=== PATIENT | female | born 1930 | race Caucasian/White ===

== ENCOUNTER 2018-01-18 10:19 | Observation (INO) ==
--- NOTE | 2018-01-18 11:24 | Emergency Department Note ---
Disposition Clinical Impression: Compression fracture of body of thoracic vertebra Disposition: Admitted As Inpatient Condition: Fair Instructions: Back Pain (ED) Time of Disposition: 17:08 Back Pain HPI - General Chief Complaint: ED Back Pain/Injury Stated Complaint: Fall/Back Pain Time Seen by Provider: 01/18/18 11:06 Source: patient, family Mode of arrival: ambulatory Limitations: no limitations Nursing Notes Reviewed: Yes Vital Signs Reviewed: Yes - History of Present Illness HPI Narrative: 87yo female with past medical history of hypertension, hyperlipidemia presented to [facility] complaining of fall today. She is alongside her daughter who reports that the patient fell last week onto face and has bruising around eyes. She fell last night 3x unwitnessed and her daughter helped her up, then she fell again this morning and her daughters made her go to ED to be evaluated. She has had increased generalized body pain. Of note, she fell 8years ago in bath tub and was found to have a brain bleed. No treatment was done except watching, she was also told her had a few small aneurysms. She is not on anticoagulation. - Related Data Home Medications Medication Instructions Recorded Confirmed LORazepam [Ativan] 1 mg PO HS 09/29/16 09/29/16 Pravastatin Sodium [Pravachol] 40 mg PO DAILY 09/29/16 09/29/16 Allergies Allergy/AdvReac Type Severity Reaction Status Date / Time Sulfa (Sulfonamide Allergy Hives Verified 01/18/18 10:31 Antibiotics) All systems ED: reviewed and negative except as stated. Review of Systems: As Per HPI Constitutional: Denies: fever, chills Cardiovascular: Denies: chest pain Respiratory: Denies: cough, dyspnea Gastrointestinal: Reports: nausea. Denies: abdominal pain, melena Genitourinary: Denies: urgency Musculoskeletal: Reports: back pain Neurological: Denies: headache Endocrine: Denies: fatigue Past Medical History - Past Medical History Medical history: Reports: arthritis, cancer, hypertension Surgical history: Reports: , hip replacement, hysterectomy Psychiatric history: Reports: no psych history - Social History Smoking Status: Former smoker Smokeless Tobacco Status: No Alcohol use: Reports: none Drug use: Reports: none Physical Exam - General Limitations: no limitations General appearance: alert, in no apparent distress - Head Head exam: normocephalic - Eye Eye exam: Present: periorbital tenderness, other (ecchymosis b/l periorbital) - ENT ENT exam: normal exam - Neck Neck exam: Absent: tenderness - Chest Chest inspection: Present: normal inspection - Respiratory Respiratory exam: Present: normal lung sounds bilaterally. Absent: wheezes - Cardiovascular Cardiovascular exam: Present: regular rate, normal rhythm, systolic murmur - Abdominal Exam Abdominal exam: Present: soft, Non-Tender, normal bowel sounds - Extremities Exam Extremities exam: Absent: tenderness, pedal edema - Back Exam Back exam: Present: normal inspection - Neurological Exam Neurological exam: Present: alert, oriented X3 - Psychiatric Psychiatric exam: Present: normal affect, normal mood - Skin Skin exam: Present: dry, intact Course Course Narrative: 87yo female with past medical history of hypertension, hyperlipidemia presented to [facility] complaining of fall today. She has fallen last week one time and 3x yesterday. She has a history of brain hemorrhage that did not require intervention. She is not on anticoagulation. Differential includes subdural hemorrhage, subarachnoid hemorrhage, fracture. Will order CT scan brain, spine, facial bones. Order coags, CBC, BMB. - Reevaluation(s) Reevaluation #1: Acute compression fracture T12. Labs unremarkable. Patient is comfortable in no acute distress. Dr. Pierce aware of patient and will evaluate. Time: 12:30 Vital Signs Temperature 97.7 F 01/18/18 10:20 Pulse Rate 109 01/18/18 10:20 Respiratory Rate 18 01/18/18 10:20 Blood Pressure 179/104 01/18/18 10:20 O2 Sat by Pulse Oximetry 96 01/18/18 10:20 Temperature 97.7 F 01/18/18 10:20 Pulse Rate 82 01/18/18 14:13 Respiratory Rate 18 01/18/18 15:02 Blood Pressure 168/99 01/18/18 15:02 O2 Sat by Pulse Oximetry 95 01/18/18 14:13 Oxygen Delivery Oxygen Delivery Room Air Back Pain/Injury - MDM Narrative Medical decision making narrative: 87yo female with past medical history of hypertension, hyperlipidemia presented to [facility] complaining of fall today. She has fallen last week one time and 3x yesterday. She has a history of brain hemorrhage that did not require intervention. She is not on anticoagulation. Differential included subdural hemorrhage, subarachnoid hemorrhage, fracture. CT head, facial, cervical were negative. CT thoracic and lumbar demonstrated acute compression fracture. Dr. Davila of orthopedic surgery was consulted and will evaluate patient on the floor for the acute compression fracture. - Medical Records Medical records reviewed: Yes I reviewed the patient's medical records. - Lab Data Lab results reviewed: Yes I reviewed the patient's lab results. Result diagrams: 01/18/18 12:08 01/18/18 12:08 Lab Results 01/18/18 01/18/18 01/18/18 Range/Units 12:08 12:08 12:08 WBC 10.5 (4.3-11.1) K/mcL RBC 4.95 (3.82-4.97) M/mcL Hgb 14.4 (11.5-15.4) g/dL Hct 43.0 (35.3-44.9) % MCV 86.9 (83.0-100.0) fL MCH 29.1 (28.0-33.3) pg MCHC 33.5 (31.6-35.5) g/dL RDW 14.5 (11.5-14.5) % Plt Count 192 (140-400) K/mcL MPV 9.9 (9.4-12.4) fL Immature Gran % 0.8 (0-4) % Seg Neutrophils % 74.8 % Lymphocytes % 13.4 % Monocytes % 10.0 % Eosinophils % 0.6 % Basophils % 0.4 % Neutrophils # 7.8 (1.6-8.9) K/mcL Lymphocytes # 1.4 (0.6-4.6) K/mcL Monocytes # 1.1 (0.0-1.3) K/mcL Eosinophils # 0.1 (0.0-0.6) K/mcL Basophils # 0.0 (0.0-0.2) K/mcL PT 11.6 (9.4-12.1) Seconds INR 1.1 APTT 29.6 (26.0-36.0) Seconds Sodium (136-145) mEq/L Potassium (3.5-5.1) mEq/L Chloride (98-107) mEq/L Carbon Dioxide (23-29) mEq/L BUN (8-23) mg/dL Creatinine (0.60-1.20) mg/dL Est GFR ( Amer) (> 60) Est GFR (Non-Af Amer) (> 60) BUN/Creatinine Ratio (6-26) Glucose (70-105) mg/dL Calculated Osmolality (280-300) Calcium (8.6-10.3) mg/dL Troponin I (< 0.04) ng/mL B-Natriuretic Peptide 113 H (Less than 100) pg/mL 01/18/18 Range/Units 12:08 WBC (4.3-11.1) K/mcL RBC (3.82-4.97) M/mcL Hgb (11.5-15.4) g/dL Hct (35.3-44.9) % MCV (83.0-100.0) fL MCH (28.0-33.3) pg MCHC (31.6-35.5) g/dL RDW (11.5-14.5) % Plt Count (140-400) K/mcL MPV (9.4-12.4) fL Immature Gran % (0-4) % Seg Neutrophils % % Lymphocytes % % Monocytes % % Eosinophils % % Basophils % % Neutrophils # (1.6-8.9) K/mcL Lymphocytes # (0.6-4.6) K/mcL Monocytes # (0.0-1.3) K/mcL Eosinophils # (0.0-0.6) K/mcL Basophils # (0.0-0.2) K/mcL PT (9.4-12.1) Seconds INR APTT (26.0-36.0) Seconds Sodium 138 (136-145) mEq/L Potassium 3.7 (3.5-5.1) mEq/L Chloride 106 (98-107) mEq/L Carbon Dioxide 23 (23-29) mEq/L BUN 21 (8-23) mg/dL Creatinine 0.74 (0.60-1.20) mg/dL Est GFR ( Amer) > 60 (> 60) Est GFR (Non-Af Amer) > 60 (> 60) BUN/Creatinine Ratio 28 H (6-26) Glucose 112 H (70-105) mg/dL Calculated Osmolality 290 (280-300) Calcium 9.0 (8.6-10.3) mg/dL Troponin I < 0.03 (< 0.04) ng/mL B-Natriuretic Peptide (Less than 100) pg/mL - Radiology Data Radiology results reviewed: Yes I reviewed the patient's radiology results. Cervical Spine CT 01/18/18 10:57 IMPRESSION: 1. No evidence of cervical spine fracture or listhesis. D/ / 01/18/2018 12:05:46 Delfino Torrez MD / marcos Interpreting Provider: Delfino Torrez MD Face CT 01/18/18 10:57 IMPRESSION: 1. No acute osseous abnormality of the facial bones. 2. Small laceration within the soft tissues of the right face. 3. Indeterminate 1.6 cm nodule within the soft tissues of the right face. This may be a complex cyst, although, a solid nodule cannot be excluded. Consider further evaluation with soft tissue ultrasound. D/ / Quinton Velez MD / Quinton Velez MD Interpreting Provider: Quinton Velez MD Head CT 01/18/18 10:57 IMPRESSION: 1. No acute intracranial abnormality. 2. Mild chronic small vessel ischemic changes. D/ / Quinton Velez MD / Quinton Velez MD Interpreting Provider: Quinton Velez MD Chest X-Ray 01/18/18 10:58 IMPRESSION: No acute traumatic abnormality. Mild left lower lobe subsegmental atelectasis. D/ : / 01/18/2018 11:59:04 Ceasar Garvin MD / [email or web address] Interpreting Provider: Ceasar Garvin MD Lumbar Spine CT 01/18/18 11:30 IMPRESSION: 1. Acute mild superior endplate compression fracture of T12 with 25% vertebral body height loss. 2. Age-indeterminate, likely chronic mild T5 compression fracture with 25% vertebral body height loss. 3. Remote mild L2 compression fracture. No acute abnormality in the lumbar spine. D/ / 01/18/2018 12:33:09 Benito Sosa MD / eryn Interpreting Provider: Benito Sosa MD Thoracic Spine CT 01/18/18 11:30
[2018-01-18 12:26] LABS: Basophils % 0.4 %; Eosinophils # 0.1 K/mcL (0.0-0.6); Eosinophils % 0.6 %; Hemoglobin 14.4 g/dL (11.5-15.4); Immature Granulocytes % 0.8 % (0-4); Lymphocytes # 1.4 K/mcL (0.6-4.6); Lymphocytes % 13.4 %; Mean Corpuscular HGB Conc 33.5 g/dL (31.6-35.5); Mean Corpuscular Hemoglobin 29.1 pg (28.0-33.3); Mean Corpuscular Volume 86.9 fL (83.0-100.0); Mean Platelet Volume 9.9 fL (9.4-12.4); Monocytes # 1.1 K/mcL (0.0-1.3); Neutrophils # 7.8 K/mcL (1.6-8.9); Platelet Count 192 K/mcL (140-400); Red Blood Count 4.95 M/mcL (3.82-4.97); Red Cell Distribution Width 14.5 % (11.5-14.5); Segmented Neutrophils % 74.8 %
[2018-01-18 12:33] LABS: INR 1.1; Prothrombin Time 11.6 Seconds (9.4-12.1)
[2018-01-18 12:35] LABS: Activated Partial Thrombo Time 29.6 Seconds (26.0-36.0)
[2018-01-18] MEDS ORDERED: *HR* FentaNYL (PF) 100 MCG/2 ML VIAL IVP ONE (12:36)
[2018-01-18 12:44] LABS: Troponin I < 0.03 ng/mL (< 0.04)
[2018-01-18 12:55] LABS: BUN/Creatinine Ratio 28 (6-26); Blood Urea Nitrogen 21 mg/dL (8-23); Carbon Dioxide 23 mEq/L (23-29); Chloride 106 mEq/L (98-107); Glucose 112 mg/dL (70-105); Osmolality,Calculated 290 (280-300); Potassium 3.7 mEq/L (3.5-5.1); Sodium 138 mEq/L (136-145); eGFR For African Americans > 60 (> 60); eGFR For Non-African Americans > 60 (> 60)
--- NOTE | 2018-01-18 13:23 | Emergency Department Note ---
Disposition Clinical Impression: Compression fracture of body of thoracic vertebra Disposition: Still a Patient Condition: Fair Referrals: Andrey Trujillo Jr, MD [Primary Care Provider] - Forms: ED Satisfaction Letter Back Pain HPI - General Chief Complaint: ED Back Pain/Injury Stated Complaint: Fall/Back Pain Time Seen by Provider: 01/18/18 11:06 Source: patient, family Mode of arrival: ambulatory Limitations: no limitations Nursing Notes Reviewed: Yes Vital Signs Reviewed: Yes - Related Data Home Medications Medication Instructions Recorded Confirmed LORazepam [Ativan] 1 mg PO HS 09/29/16 09/29/16 Multivit-Min/FA/Lycopen/Lutein 1 tab PO DAILY 09/29/16 09/29/16 [Centrum Silver Tablet] Pravastatin Sodium [Pravachol] 40 mg PO DAILY 09/29/16 09/29/16 Allergies Allergy/AdvReac Type Severity Reaction Status Date / Time Sulfa (Sulfonamide Allergy Hives Verified 01/18/18 10:31 Antibiotics) Past Medical History - Past Medical History Medical history: Reports: arthritis, cancer, hypertension Surgical history: Reports: , hip replacement, hysterectomy Psychiatric history: Reports: no psych history - Social History Smoking Status: Former smoker Smokeless Tobacco Status: No Alcohol use: Reports: none Drug use: Reports: none Physical Exam - General Limitations: no limitations General appearance: alert, in no apparent distress Course Vital Signs Temperature 97.7 F 01/18/18 10:20 Pulse Rate 109 01/18/18 10:20 Respiratory Rate 18 01/18/18 10:20 Blood Pressure 179/104 01/18/18 10:20 O2 Sat by Pulse Oximetry 96 01/18/18 10:20 Temperature 97.7 F 01/18/18 10:20 Pulse Rate 94 01/18/18 12:23 Respiratory Rate 18 01/18/18 12:23 Blood Pressure 155/85 01/18/18 12:23 O2 Sat by Pulse Oximetry 96 01/18/18 12:23 Oxygen Delivery Oxygen Delivery Room Air Back Pain/Injury - Lab Data Result diagrams: 01/18/18 12:08 01/18/18 12:08 Lab Results 01/18/18 01/18/18 01/18/18 Range/Units 12:08 12:08 12:08 WBC 10.5 (4.3-11.1) K/mcL RBC 4.95 (3.82-4.97) M/mcL Hgb 14.4 (11.5-15.4) g/dL Hct 43.0 (35.3-44.9) % MCV 86.9 (83.0-100.0) fL MCH 29.1 (28.0-33.3) pg MCHC 33.5 (31.6-35.5) g/dL RDW 14.5 (11.5-14.5) % Plt Count 192 (140-400) K/mcL MPV 9.9 (9.4-12.4) fL Immature Gran % 0.8 (0-4) % Seg Neutrophils % 74.8 % Lymphocytes % 13.4 % Monocytes % 10.0 % Eosinophils % 0.6 % Basophils % 0.4 % Neutrophils # 7.8 (1.6-8.9) K/mcL Lymphocytes # 1.4 (0.6-4.6) K/mcL Monocytes # 1.1 (0.0-1.3) K/mcL Eosinophils # 0.1 (0.0-0.6) K/mcL Basophils # 0.0 (0.0-0.2) K/mcL PT 11.6 (9.4-12.1) Seconds INR 1.1 APTT 29.6 (26.0-36.0) Seconds Sodium (136-145) mEq/L Potassium (3.5-5.1) mEq/L Chloride (98-107) mEq/L Carbon Dioxide (23-29) mEq/L BUN (8-23) mg/dL Creatinine (0.60-1.20) mg/dL Est GFR ( Amer) (> 60) Est GFR (Non-Af Amer) (> 60) BUN/Creatinine Ratio (6-26) Glucose (70-105) mg/dL Calculated Osmolality (280-300) Calcium (8.6-10.3) mg/dL Troponin I (< 0.04) ng/mL B-Natriuretic Peptide 113 H (Less than 100) pg/mL 01/18/18 Range/Units 12:08 WBC (4.3-11.1) K/mcL RBC (3.82-4.97) M/mcL Hgb (11.5-15.4) g/dL Hct (35.3-44.9) % MCV (83.0-100.0) fL MCH (28.0-33.3) pg MCHC (31.6-35.5) g/dL RDW (11.5-14.5) % Plt Count (140-400) K/mcL MPV (9.4-12.4) fL Immature Gran % (0-4) % Seg Neutrophils % % Lymphocytes % % Monocytes % % Eosinophils % % Basophils % % Neutrophils # (1.6-8.9) K/mcL Lymphocytes # (0.6-4.6) K/mcL Monocytes # (0.0-1.3) K/mcL Eosinophils # (0.0-0.6) K/mcL Basophils # (0.0-0.2) K/mcL PT (9.4-12.1) Seconds INR APTT (26.0-36.0) Seconds Sodium 138 (136-145) mEq/L Potassium 3.7 (3.5-5.1) mEq/L Chloride 106 (98-107) mEq/L Carbon Dioxide 23 (23-29) mEq/L BUN 21 (8-23) mg/dL Creatinine 0.74 (0.60-1.20) mg/dL Est GFR ( Amer) > 60 (> 60) Est GFR (Non-Af Amer) > 60 (> 60) BUN/Creatinine Ratio 28 H (6-26) Glucose 112 H (70-105) mg/dL Calculated Osmolality 290 (280-300) Calcium 9.0 (8.6-10.3) mg/dL Troponin I < 0.03 (< 0.04) ng/mL B-Natriuretic Peptide (Less than 100) pg/mL Attestation Statement - Attestation Attestation: I, Blake Keita, examined this patient and my medical decision-making was reviewed with the HOIST OPERATOR/PA/Advanced Practice Nurse/Resident Physician. I agree with the documented findings, disposition and treatment plan as described except to the extent set forth below. 87-year-old female presents emergency Department with concerns of back pain and multiple falls. Family states patient lives alone and has had multiple falls over the past week. They state that this is not uncommon for her. She also has a history of progressing dementia and has loss of short-term memory. Patient denies fever, chills, chest pain, shortness of breath. She had multiple falls over the past couple days. She had a CT today which showed acute compression fracture of for taper body of T12 with 25% height loss. Patient also has evidence of multiple previous compression fractures. No intracranial hemorrhage or cervical spine fracture. Patient is ambulating well with her walker prior to arrival however she is unsafe to be home alone. Family feels that is important for her to be able to have more supervision at home. They are unable to provide this. They are requesting placement to a rehabilitation facility versus an assisted living facility. Patient comfortable with this plan of action. I spoke with Dr. Davila regarding the patient's care and presentation and he will consult if patient is admitted to the hospital for vertebral plasty. If patient is discharged he will see the patient in on Thursday, 01/20 at 9 AM. outside maintenance worker was contacted regarding placement versus admission. Disposition is pending at this time.
--- NOTE | 2018-01-18 14:16 | Internal Med History&Physical ---
Date of Encounter: 01/18/18 Time of Encounter: 14:12 Internal Medicine - H&P: HPI Chief complaint: recurrent falls Admitted From: Emergency Dept Plans for Post Hospital Care: Home History of present illness: Ms. Rhodes is a 87 year old female Patient with history of progressive dementia, hypertension, high cholesterol, arthritis, history of cerebral bleed in the past no surgical intervention . Patient was brought in by daughter due to patient has recurrent falls . daughter is concern patient is getting much more forgetful and had a fall about a week ago and also fell 3 times last night therefore brought into the emergency room by the daughter she had multiple x-rays and CT scan of neck, head CT spine lumbar spine and thoracic spine noted to have T12 compression fraction Dr. Davila was consulted for follow-up evaluation for possible kyphoplasty patient been admitted and might need placement patient is awake alert complians of back pain and some generalized weakness Past Med Surg Social Fam HX - Past Medical History Medical history: arthritis, cancer, hypertension Additional medical history: Brain aneurysm Psychiatric history: no psych history - Past Surgical History Surgical History: , hip replacement, hysterectomy - Social History Smoking Status: Former smoker Smokeless Tobacco Status: No Alcohol use: none Drug use: none Internal Medicine - H&P: Meds LORazepam [Ativan] 1 mg PO HS 09/29/16 [History] Multivit-Min/FA/Lycopen/Lutein [Centrum Silver Tablet] 1 tab PO DAILY 09/29/16 [ History] Pravastatin Sodium [Pravachol] 40 mg PO DAILY 09/29/16 [History] 3 Allergy/AdvReac Type Severity Reaction Status Date / Time Sulfa (Sulfonamide Allergy Hives Verified 01/18/18 10:31 Antibiotics) All Systems PM: A 10-system review of systems was performed and is negative for pertinent findings except as documented above in the HPI. - Constitutional Vitals: Temp Pulse Resp BP Pulse Ox 97.7 F 94 18 155/85 96 01/18/18 10:20 01/18/18 12:23 01/18/18 12:23 01/18/18 12:23 01/18/18 12:23 - Eye Eye exam: Present: PERRL, conjuntiva pink, sclera anicteric Pupils: Present: PERRL - Neck Neck exam general surgery: Present: supple, trachea midline. Absent: lymphadenopathy - Cardiovascular Cardiovascular exam: Present: RRR, +S1, +S2. Absent: diastolic murmur, gallop, rubs, systolic murmur - GI/Abdominal GI/Abdominal exam: Present: normal bowel sounds, soft, no peritoneal signs. Absent: distended, tenderness - Extremities Exam Extremities exam: Present: tenderness - Neurological Exam Neurological exam: Present: CN II-XII intact, oriented X3, no focal deficits. Absent: pronater drift, facial droop, speech deficit Internal Med - H&P Results - Labs CBC & Chem 7: 01/18/18 12:08 01/18/18 12:08 Labs: Short CBC 01/18/18 Range/Units 12:08 WBC 10.5 (4.3-11.1) K/mcL Hgb 14.4 (11.5-15.4) g/dL Hct 43.0 (35.3-44.9) % Plt Count 192 (140-400) K/mcL Neutrophils # 7.8 (1.6-8.9) K/mcL BMP 01/18/18 12:08 Sodium 138 Potassium 3.7 Chloride 106 Carbon Dioxide 23 BUN 21 Creatinine 0.74 Glucose 112 H Calcium 9.0 Cardiac Enzymes 01/18/18 Range/Units 12:08 Troponin I < 0.03 (< 0.04) ng/mL - Impressions ITS Impressions Cervical Spine CT 01/18/18 10:57 IMPRESSION: 1. No evidence of cervical spine fracture or listhesis. D/ / 01/18/2018 12:05:46 Delfino Torrez MD / marcos Interpreting Provider: Delfino Torrez MD Face CT 01/18/18 10:57 IMPRESSION: 1. No acute osseous abnormality of the facial bones. 2. Small laceration within the soft tissues of the right face. 3. Indeterminate 1.6 cm nodule within the soft tissues of the right face. This may be a complex cyst, although, a solid nodule cannot be excluded. Consider further evaluation with soft tissue ultrasound. D/ / Quinton Velez MD / Quinton Velez MD Interpreting Provider: Quinton Velez MD Head CT 01/18/18 10:57 IMPRESSION: 1. No acute intracranial abnormality. 2. Mild chronic small vessel ischemic changes. D/ / Quinton Velez MD / Quinton Velez MD Interpreting Provider: Quinton Velez MD Chest X-Ray 01/18/18 10:58 IMPRESSION: No acute traumatic abnormality. Mild left lower lobe subsegmental atelectasis. D/ / 01/18/2018 11:59:04 Ceasar Garvin MD / avinash Interpreting Provider: Ceasar Garvin MD Lumbar Spine CT 01/18/18 11:30 IMPRESSION: 1. Acute mild superior endplate compression fracture of T12 with 25% vertebral body height loss. 2. Age-indeterminate, likely chronic mild T5 compression fracture with 25% vertebral body height loss. 3. Remote mild L2 compression fracture. No acute abnormality in the lumbar spine. D/ / 01/18/2018 12:33:09 Benito Sosa MD / eryn Interpreting Provider: Benito Sosa MD Thoracic Spine CT 01/18/18 11:30 IMPRESSION: 1. Acute mild superior endplate compression fracture of T12 with 25% vertebral body height loss. 2. Age-indeterminate, likely chronic mild T5 compression fracture with 25% vertebral body height loss. 3. Remote mild L2 compression fracture. No acute abnormality in the lumbar spine. D/ / 01/18/2018 12:33:09 Benito Sosa MD / eryn Interpreting Provider: Benito Sosa MD - Assessment and plan (1) Recurrent falls Current Visit: Yes Status: Acute Assessment and plan: Recurrent mechanical falls we will consult social for possible placement (2) Dementia Current Visit: Yes Status: Chronic Assessment and plan: chronic Qualifiers: Dementia type: unspecified type Dementia behavioral disturbance: without behavioral disturbance Qualified Code(s): F03.90 - Unspecified dementia without behavioral disturbance (3) HTN (hypertension) Current Visit: Yes Status: Chronic Assessment and plan: Chronic not well controlled we will resume home medication and make some adjustment Qualifiers: Hypertension type: essential hypertension Qualified Code(s): I10 - Essential (primary) hypertension (4) Hyperlipidemia Current Visit: Yes Status: Chronic Assessment and plan: Chronic resume home medication Qualifiers: Hyperlipidemia type: pure hypercholesterolemia Qualified Code(s): E78.00 - Pure hypercholesterolemia, unspecified; E78.0 - Pure hypercholesterolemia (5) DJD (degenerative joint disease) Current Visit: Yes Status: Chronic Qualifiers: Osteoarthritis location: spine Spinal region: thoracic 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 Davila has been consulted - Time Spent With Patient Total time spent is greater than 50% in coordination of care (as documented) at patient's floor/unit and/or counseling patient:
[2018-01-18] MEDS ORDERED: Naloxone 0.4 MG/ML INJ IVP PRN (14:26)
[2018-01-18] MEDS: 0.9 % Sodium Chloride 1,000 ML IVC SCH (16:03)
[2018-01-18] MEDS: Ondansetron 4 MG/2 ML VIAL IVP PRN ×2 (16:06→23:41)
[2018-01-18] MEDS: traMADol 50 MG TABLET PO PRN ×2 (17:21→21:34)
--- NOTE | 2018-01-18 20:59 | Electrocardiograph Report ---
[facility] Test Date: 2018-01-18 Pat Name: Jennifer Rhodes Department: 102 Room: 3B45 Gender: F Director Of Public Safety: : 1930 Requested By: Violeta Keita Order Number: [id number] Reading MD: Rohan Vizcarra Measurements Intervals [place] Rate: 104 P: 39 SC: 103 QRS: -19 QRSD: 89 T: 6 QT: 339 QTc: 399 Interpretive Statements SINUS TACHYCARDIA LEFT VENTRICULAR HYPERTROPHY AND ST-T CHANGE Electronically Signed On 01-18-2018 20:58:07 EDT by Rohan Vizcarra
[2018-01-18] MEDS ORDERED: *HR* LORazepam 1 MG TABLET PO SCH (21:00)
[2018-01-18] MEDS: Acetaminophen 325 MG TABLET PO PRN (23:40)
[2018-01-19 05:40] LABS: Hematocrit 42.7 % (35.3-44.9); Hemoglobin 14.1 g/dL (11.5-15.4); Mean Corpuscular Hemoglobin 29.2 pg (28.0-33.3); Mean Corpuscular Volume 88.4 fL (83.0-100.0); Mean Platelet Volume 10.1 fL (9.4-12.4); Platelet Count 182 K/mcL (140-400); Red Blood Count 4.83 M/mcL (3.82-4.97); Red Cell Distribution Width 14.6 % (11.5-14.5)
[2018-01-19] MEDS: 0.9 % Sodium Chloride 1,000 ML IVC SCH (05:46)
[2018-01-19 05:59] LABS: Alanine Aminotransferase 19 Units/L (7-52); Albumin 3.4 g/dL (3.5-5.7); Albumin/Globulin Ratio 1.4 (1.1-2.2); Alkaline Phosphatase 61 Units/L (34-104); Aspartate Amino Transferase 22 Units/L (13-39); BUN/Creatinine Ratio 27 (6-26); Bilirubin,Total 0.7 mg/dL (0.3-1.0); Blood Urea Nitrogen 15 mg/dL (8-23); Calcium 8.6 mg/dL (8.6-10.3); Carbon Dioxide 20 mEq/L (23-29); Chloride 106 mEq/L (98-107); Chol/HDL Ratio 2.9 (0-4.9); Cholesterol 106 mg/dL (< 200); Globulin 2.5 g/dL (2.4-3.5); Glucose 105 mg/dL (70-105); HDL Cholesterol 37 mg/dL (40-59); LDL Cholesterol,Calculated 52 mg/dL (0-99); Magnesium 1.8 mg/dL (1.6-2.6); Osmolality,Calculated 285 (280-300); Potassium 3.7 mEq/L (3.5-5.1); Sodium 137 mEq/L (136-145); Total Protein 5.9 g/dL (6.4-8.9); Triglycerides 83 mg/dL (< 150); eGFR For African Americans > 60 (> 60); eGFR For Non-African Americans > 60 (> 60)
[2018-01-19] MEDS ORDERED: *HR* Enoxaparin 40 MG/0.4 ML SYRINGE SQ SCH (06:00)
[2018-01-19] MEDS: traMADol 50 MG TABLET PO PRN ×2 (13:37→22:07)
--- NOTE | 2018-01-19 14:17 | Internal Med Progress Note ---
Date of Encounter: 01/19/18 Time of Encounter: 14:15 - Assessment and plan (1) Compression fracture of body of thoracic vertebra Current Visit: Yes Status: Acute Assessment and plan: Acute T12 compression fracture 2/2 recurrent falls Patient continued complaining of lower back pain Dr. Davila has been consult and-awaiting further recommendations Continue pain management per current regimen PT/OT/social research assistant and nurse navigator consult Consider inpatient rehabilitation at discharge (2) Recurrent falls Current Visit: Yes Status: Acute Assessment and plan: Patient presents with recurrent falls Falls resulting in acute T12 compression fracture Patient may benefit from placement for rehabilitation Consult PT/OT/social research assistant and nurse navigator The patient does not wish for inpatient rehabilitation she may benefit from home health with physical therapy (3) DJD (degenerative joint disease) Current Visit: Yes Status: Chronic Qualifiers: Osteoarthritis location: spine Spinal region: thoracic Spinal osteoarthritis complication: unspecified spinal osteoarthritis Qualified Code( s): 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 Continue to monitor. Adding 5 mg IV metoprolol when necessary for SBP greater than 170 hold for HR less than 60 Qualifiers: Hypertension type: essential hypertension Qualified Code(s): I10 - Essential (primary) hypertension (6) Hyperlipidemia Current Visit: Yes Status: Chronic Assessment and plan: Lipitor Qualifiers: Hyperlipidemia type: pure hypercholesterolemia Qualified Code(s): E78.00 - Pure hypercholesterolemia, unspecified; E78.0 - Pure hypercholesterolemia (7) DVT prophylaxis Current Visit: Yes Status: Acute Assessment and plan: Lovenox - Time Spent With Patient Total time spent is greater than 50% in coordination of care (as documented) at patient's floor/unit and/or counseling patient: 25 - 35 minutes - Subjective Interval history: Patient seen and examined at bedside today. No acute changes overnight. Denies any syncope/near syncopal, dizziness, vision changes, weakness or fatigue or balance difficulties. Her complaint today is pain in the lower back. - Constitutional Vitals: Temp Pulse Resp BP Pulse Ox 98.8 F 102 18 165/83 92 01/19/18 11:29 01/19/18 11:29 01/19/18 11:29 01/19/18 11:29 01/19/18 11:29 General appearance: Present: cooperative, A&O X 3, no acute distress - Head Head exam: Present: atraumatic, normocephalic - Eye Eye exam: Present: PERRL, conjuntiva pink, sclera anicteric Pupils: Present: PERRL - Neck Neck exam general surgery: Present: supple, trachea midline. Absent: lymphadenopathy - Respiratory Respiratory exam: Present: CTAB. Absent: accessory muscle use, rales, rhonchi, wheezes - Cardiovascular Cardiovascular exam: Present: RRR, +S1, +S2, systolic murmur. Absent: diastolic murmur, gallop, rubs - GI/Abdominal GI/Abdominal exam: Present: normal bowel sounds, soft, no peritoneal signs. Absent: distended, tenderness - Extremities Exam Extremities exam: Present: warm, radial pulses palpable and symmetrical. Absent : calf tenderness, cyanotic, pedal edema - Neurological Exam Neurological exam: Present: CN II-XII intact, oriented X3, no focal deficits. Absent: pronater drift, facial droop, speech deficit - Skin Skin exam: Present: dry, intact Internal Medicine: Result - Labs CBC & Chem 7: 01/19/18 04:20 01/19/18 04:20 Labs: Short CBC 01/19/18 Range/Units 04:20 WBC 10.0 (4.3-11.1) K/mcL Hgb 14.1 (11.5-15.4) g/dL Hct 42.7 (35.3-44.9) % Plt Count 182 (140-400) K/mcL BMP 01/19/18 04:20 Sodium 137 Potassium 3.7 Chloride 106 Carbon Dioxide 20 L BUN 15 Creatinine 0.55 L Glucose 105 Calcium 8.6 Cardiac Enzymes 01/18/18 01/19/18 01/19/18 Range/Units 20:19 04:20 11:46 Troponin I < 0.03 0.05 H* 0.07 H* (< 0.04) ng/mL Liver Function 01/19/18 Range/Units 04:20 Total Bilirubin 0.7 (0.3-1.0) mg/dL AST 22 (13-39) Units/L ALT 19 (7-52) Units/L Alkaline Phosphatase 61 (34-104) Units/L Albumin 3.4 L (3.5-5.7) g/dL - ABG Interpretation ABG results: PT/INR, D-dimer PT 11.6 Seconds (9.4-12.1) 01/18/18 12:08 Consult Discharge Plan - Plan Instructions: Back Pain (ED) Referrals: Andrey Trujillo Jr, MD [Primary Care Provider] -
[2018-01-19] MEDS ORDERED: *HR* Metoprolol 5 MG/5 ML VIAL IVP PRN (14:19)
[2018-01-19] MEDS: Acetaminophen 325 MG TABLET PO PRN (14:32)
--- NOTE | 2018-01-19 18:43 | Electrocardiograph Report ---
[address] [place] [address] Test Date: 2018-01-19 Pat Name: Jennifer Rhodes Department: 113 Room: 3B45 Gender: F Doughmaker: NICOLE : 1930 Requested By: Chelsi Garcia Order Number: [id number] Reading MD: Juan Ramirez Measurements Intervals [place] Rate: 100 P: 142 TN: 128 QRS: -23 QRSD: 123 T: 0 QT: 375 QTc: 432 Interpretive Statements SINUS TACHYCARDIA WITH SHORT TN INTERVAL INFERIOR MYOCARDIAL INFARCTION, PROBABLY OLD WITH POSTERIOR EXTENSION ANTEROLATERAL MYOCARDIAL INFARCTION, PROBABLY OLD Electronically Signed On 01-19-2018 18:41:52 EDT by Juan Ramirez
[2018-01-19] MEDS ORDERED: Ketorolac 15 MG/ML VIAL IVP ONE (19:35)
[2018-01-19] MEDS ORDERED: *HR* LORazepam 1 MG TABLET PO PRN (19:53)
[2018-01-19] MEDS ORDERED: Naloxone 0.4 MG/ML INJ IVP PRN (19:55)
[2018-01-19] MEDS ORDERED: 0.9 % Sodium Chloride 1,000 ML IVC SCH (20:00)
[2018-01-19] MEDS ORDERED: *HR* LORazepam 0.5 MG TABLET PO PRN (22:03)
[2018-01-19] MEDS ORDERED: traMADol 50 MG TABLET PO PRN (22:04)
[2018-01-20] MEDS ORDERED: Nitroglycerin 0.4 MG TAB.SUBL SL ONE (00:58)
[2018-01-20] MEDS ORDERED: Aspirin 81 MG TAB.CHEW ONE (00:58)
[2018-01-20] MEDS: Nitroglycerin 0.4 MG TAB.SUBL SL PRN ×3 (01:03→20:49)
[2018-01-20 01:17] LABS: Basophils % 0.6 %; Eosinophils # 0.3 K/mcL (0.0-0.6); Eosinophils % 3.5 %; Hematocrit 39.5 % (35.3-44.9); Hemoglobin 12.9 g/dL (11.5-15.4); Immature Granulocytes % 0.3 % (0-4); Lymphocytes # 1.9 K/mcL (0.6-4.6); Lymphocytes % 26.2 %; Mean Corpuscular HGB Conc 32.7 g/dL (31.6-35.5); Mean Corpuscular Hemoglobin 28.6 pg (28.0-33.3); Mean Corpuscular Volume 87.6 fL (83.0-100.0); Mean Platelet Volume 9.5 fL (9.4-12.4); Monocytes # 0.9 K/mcL (0.0-1.3); Monocytes % 13.2 %; Platelet Count 182 K/mcL (140-400); Red Blood Count 4.51 M/mcL (3.82-4.97); Red Cell Distribution Width 14.6 % (11.5-14.5); Segmented Neutrophils % 56.2 %
[2018-01-20] MEDS ORDERED: Aspirin 81 MG TAB.CHEW PO ONE (01:26)
[2018-01-20] MEDS: Melatonin 3 MG TABLET PO SCH ×2 (01:27→20:29)
[2018-01-20 01:43] LABS: BUN/Creatinine Ratio 21 (6-26); Blood Urea Nitrogen 11 mg/dL (8-23); Calcium 8.4 mg/dL (8.6-10.3); Carbon Dioxide 24 mEq/L (23-29); Chloride 106 mEq/L (98-107); Glucose 111 mg/dL (70-105); Osmolality,Calculated 282 (280-300); Potassium 3.6 mEq/L (3.5-5.1); Sodium 136 mEq/L (136-145); eGFR For African Americans > 60 (> 60); eGFR For Non-African Americans > 60 (> 60)
[2018-01-20 01:45] LABS: BUN/Creatinine Ratio 21 (6-26); Blood Urea Nitrogen 11 mg/dL (8-23); Calcium 8.6 mg/dL (8.6-10.3); Carbon Dioxide 24 mEq/L (23-29); Chloride 106 mEq/L (98-107); Glucose 110 mg/dL (70-105); Magnesium 1.9 mg/dL (1.6-2.6); Osmolality,Calculated 284 (280-300); Potassium 3.7 mEq/L (3.5-5.1); Sodium 137 mEq/L (136-145); eGFR For African Americans > 60 (> 60); eGFR For Non-African Americans > 60 (> 60)
[2018-01-20 01:49] LABS: Troponin I 0.07 ng/mL (< 0.04)
--- NOTE | 2018-01-20 02:24 | Event Note ---
Date of Encounter: 01/19/18 Time of Encounter: 23:45 Ms. Rhodes is an 87-year-old female who is here for a fall and spinal fracture who began complaining of chest pain described as midsternal, 10/10 with associated nausea. Denies diaphoresis, dizziness, weakness. She states that her back and legs were hurting then her chest started hurting. Patient was given nitroglycerin and pain decreased to 6/10. ASA 325mg given. EKG was obtained which showed sinus rhythm HR 93bpm. Troponin= 0.07 (0.07 previous at 1146). BMP and Mg were ordered and no acute changes. Patient was placed on telemetry. Troponin order placed for repeat in 6H.
[2018-01-20] MEDS ORDERED: *HR* Enoxaparin 40 MG/0.4 ML SYRINGE SQ SCH (06:00)
[2018-01-20] MEDS: traMADol 50 MG TABLET PO PRN ×4 (07:44→23:47)
[2018-01-20] MEDS ORDERED: *HR* Enoxaparin 40 MG/0.4 ML SYRINGE SQ ONE (09:00)
[2018-01-20] MEDS: Aspirin 81 MG TAB.CHEW PO SCH (11:26)
--- NOTE | 2018-01-20 12:09 | Internal Med Progress Note ---
Date of Encounter: 01/20/18 Time of Encounter: 12:06 - Assessment and plan (1) Compression fracture of body of thoracic vertebra Current Visit: Yes Status: Acute Assessment and plan: Acute T12 compression fracture 2/2 recurrent falls Patient continued complaining of lower back pain Dr. Bianchi seeing in consultation-appreciate recommendations Continue pain management per current regimen PT/OT/social science professor and nurse navigator consult Consider inpatient rehabilitation at discharge (2) Recurrent falls Current Visit: Yes Status: Acute Assessment and plan: Patient presents with recurrent falls Falls resulting in acute T12 compression fracture Patient may benefit from placement for rehabilitation Consult PT/OT/social science professor and nurse navigator The patient does not wish for inpatient rehabilitation she may benefit from home health with physical therapy (3) DJD (degenerative joint disease) Current Visit: Yes Status: Chronic Qualifiers: Osteoarthritis location: spine Spinal region: thoracic Spinal osteoarthritis complication: unspecified spinal osteoarthritis Qualified Code( s): 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 Likely 2/2 pain with spinal compression fractures Adding metoprolol 12.5 mg by mouth twice a day Continue 5 mg IV metoprolol when necessary for SBP greater than 170 hold for HR less than 60 Continue monitor blood pressure closely Qualifiers: Hypertension type: essential hypertension Qualified Code(s): I10 - Essential (primary) hypertension (6) Hyperlipidemia Current Visit: Yes Status: Chronic Assessment and plan: Lipitor Qualifiers: Hyperlipidemia type: pure hypercholesterolemia Qualified Code(s): E78.00 - Pure hypercholesterolemia, unspecified; E78.0 - Pure hypercholesterolemia (7) DVT prophylaxis Current Visit: Yes Status: Acute Assessment and plan: Lovenox - Time Spent With Patient Total time spent is greater than 50% in coordination of care (as documented) at patient's floor/unit and/or counseling patient: 25 - 35 minutes - Subjective Interval history: Patient seen and examined at bedside today. Developed chest pain over night. Reports it was 10/10 last night but improved with SL nitro. Continues to have intermittent chest pain/discomfort and GI symptoms. Denies any syncope/near syncopal, dizziness, vision changes, weakness or fatigue or balance difficulties. C/O pain lower back. - Constitutional Vitals: Temp Pulse Resp BP Pulse Ox 98.2 F 92 17 167/83 90 01/20/18 07:50 01/20/18 07:50 01/20/18 07:50 01/20/18 07:50 01/20/18 07:50 General appearance: Present: cooperative, A&O X 3, no acute distress - Head Head exam: Present: atraumatic, normocephalic - Eye Eye exam: Present: PERRL, conjuntiva pink, sclera anicteric Pupils: Present: PERRL - Neck Neck exam general surgery: Present: supple, trachea midline. Absent: lymphadenopathy - Respiratory Respiratory exam: Present: CTAB. Absent: accessory muscle use, rales, rhonchi, wheezes - Cardiovascular Cardiovascular exam: Present: RRR, +S1, +S2, systolic murmur. Absent: diastolic murmur, gallop, rubs - GI/Abdominal GI/Abdominal exam: Present: normal bowel sounds, soft, no peritoneal signs. Absent: distended, tenderness - Extremities Exam Extremities exam: Present: warm, radial pulses palpable and symmetrical. Absent : calf tenderness, cyanotic, pedal edema - Back Exam Back exam: Present: paraspinal tenderness (Paraspinal tenderness [id number] ) - Neurological Exam Neurological exam: Present: CN II-XII intact, oriented X3, no focal deficits. Absent: pronater drift, facial droop, speech deficit - Skin Skin exam: Present: dry, intact Internal Medicine: Result - Labs CBC & Chem 7: 01/20/18 01:04 01/20/18 01:04 Labs: Short CBC 01/20/18 Range/Units 01:04 WBC 7.1 (4.3-11.1) K/mcL Hgb 12.9 (11.5-15.4) g/dL Hct 39.5 (35.3-44.9) % Plt Count 182 (140-400) K/mcL Neutrophils # 4.0 (1.6-8.9) K/mcL BMP 01/20/18 01/20/18 01:04 01:04 Sodium 136 137 Potassium 3.6 3.7 Chloride 106 106 Carbon Dioxide 24 24 BUN 11 11 Creatinine 0.53 L 0.52 L Glucose 111 H 110 H Calcium 8.4 L 8.6 Cardiac Enzymes 01/20/18 01/20/18 Range/Units 01:04 07:42 Troponin I 0.07 H* 0.08 H* (< 0.04) ng/mL - ABG Interpretation ABG results: PT/INR, D-dimer PT 11.6 Seconds (9.4-12.1) 01/18/18 12:08 Consult Discharge Plan - Plan Referrals: Andrey Trujillo Jr, MD [Primary Care Provider] -
--- NOTE | 2018-01-20 12:22 | Pain Management Consultation ---
Date of Encounter: 01/20/18 Time of Encounter: 12:22 Assessment and Plan (1) Compression fracture of body of thoracic vertebra Current Visit: Yes Status: Acute The assessment and plan as outlined above was discussed with the patient and/or family members who expressed understanding and agreement. All questions were answered. I agree with the current care plan. She is getting some benefit from tramadol 50 mg every 6 hours but there is significant breakthrough pain short of the next dose. Would recommend increasing the efficacy of the pain medication to an hydrocodone/APAP 5 x 3 25 one every 6 hours as needed for pain. If the patient is able to demonstrate good balance and walking ability and ability to dress and go to the bathroom and stand or walk for a period of time the patient may be discharged on this regimen. Kyphoplasty is not clearly indicated at this time. Would recommend following up with me in the office upon discharge for further planning as an outpatient treatment regimen. Please schedule with my office upon discharge. History of Present Illness Chief complaint: Back pain HPI: Ms. Rhodes is a 87 year old female The patient had 1 week a history of back pain. The patient states the pain is across the lower thoracic region. It is an aching sensation. She was able to maintain her activities of daily living and quality life overall but she had significant discomfort. She normally does not have any back pain. The pain radiates somewhat into the ribs bilaterally. The pain medication she is receiving does help her significantly. It helps drop her pain down to a more manageable level. She is able to sit in chair as well as get up and go to the bathroom while using pain medication. She is not experiencing any side effects from the medication. She has no radiation into the lower extremities. She notices no new weakness. She is not noticing any bowel or bladder dysfunction. Patient states that "if I can get my pain under control I would like to leave here." Past Med Surg Social Fam HX - Past Medical History Medical history: arthritis, cancer, hypertension Additional medical history: Brain aneurysm Psychiatric history: no psych history - Past Surgical History Surgical History: , hip replacement, hysterectomy - Social History Smoking Status: Former smoker Smokeless Tobacco Status: No Alcohol use: none Drug use: none - Family History Sister Hx Family Cancer: Yes (Pancreatic CA) Brother Hx Family Cancer: Yes (Lung CA) Medications and Allergies LORazepam [Ativan] 1 mg PO HS 09/29/16 [History] Pravastatin Sodium [Pravachol] 40 mg PO DAILY 09/29/16 [History] 3 Allergy/AdvReac Type Severity Reaction Status Date / Time Sulfa (Sulfonamide Allergy Hives Verified 01/18/18 10:31 Antibiotics) Review of Systems - Constitutional Constitutional ROS IM: no photophobia, no phonophobia, no daytime sleepiness, no fever(s), no stops breathing during sleep - EENT Nose, mouth and throat: no headache(s), no neck pain, no neck trauma - Cardiovascular Cardiovascular ROS: no chest pain, no leg edema, no lightheadedness - Respiratory Respiratory: no pain on inspiration, no pain with cough - Gastrointestinal Gastrointestinal: no abdominal pain, no constipation, no diarrhea, no heartburn - Genitourinary Genitourinary ROS: no difficulty urinating, no flank pain, no urinary hesitancy - Musculoskeletal Musculoskeletal ROS: as per HPI (Thoracic back pain) - Integumentary Integumentary: no erythema, no lesions, no swelling - Neurological Neurological ROS: no abnormal gait, no behavioral changes, no focal weakness, no radicular pain - Hematologic/Lymphatic Hematologic/Lymphatic pediatric: no easy bleeding, no easy bruising Physical Exam Initial Vital Signs Temp Pulse Resp BP Pulse Ox 97.7 F 109 18 179/104 96 01/18/18 10:20 01/18/18 10:20 01/18/18 10:20 01/18/18 10:20 01/18/18 10:20 - General physical appearance General physical appearance: awake & oriented, no distress, no pain, moderate pain - Eyes Eye exam: normal ocular movement - Neck trachea midline - Respiratory normal respiratory effort - Cardiovascular Cardiovascular exam: Present: RRR - Integumentary Integumentary general surgery: no rash, no abnormal pigmentation - Neurologic normal coordination - Musculoskeletal Musculoskeletal: kyphosis, point tenderness over spinal process (T12) - Psychiatric Psychiatric: oriented to time, oriented to person, oriented to place Results - Labs 01/20/18 01:04 01/20/18 01:04 Abnormal lab results RDW 14.6 % (11.5-14.5) H 01/20/18 01:04 Creatinine 0.52 mg/dL (0.60-1.20) L 01/20/18 01:04 Glucose 110 mg/dL (70-105) H 01/20/18 01:04 Troponin I 0.08 ng/mL (< 0.04) H* 01/20/18 07:42 B-Natriuretic Peptide 113 pg/mL (Less than 100) H 01/18/18 12:08 Serum Total Protein 5.9 g/dL (6.4-8.9) L 01/19/18 04:20 Albumin 3.4 g/dL (3.5-5.7) L 01/19/18 04:20 HDL Cholesterol 37 mg/dL (40-59) L 01/19/18 04:20 Diabetes panel 01/20/18 01/20/18 Range/Units 01:04 01:04 Sodium 136 137 (136-145) mEq/L Potassium 3.6 3.7 (3.5-5.1) mEq/L Chloride 106 106 (98-107) mEq/L Carbon Dioxide 24 24 (23-29) mEq/L BUN 11 11 (8-23) mg/dL Creatinine 0.53 L 0.52 L (0.60-1.20) mg/dL Glucose 111 H 110 H (70-105) mg/dL Calcium 8.4 L 8.6 (8.6-10.3) mg/dL Calcium panel 01/20/18 01/20/18 Range/Units 01:04 01:04 Calcium 8.4 L 8.6 (8.6-10.3) mg/dL Pituitary panel 01/20/18 01/20/18 Range/Units 01:04 01:04 Sodium 136 137 (136-145) mEq/L Potassium 3.6 3.7 (3.5-5.1) mEq/L Chloride 106 106 (98-107) mEq/L Carbon Dioxide 24 24 (23-29) mEq/L BUN 11 11 (8-23) mg/dL Creatinine 0.53 L 0.52 L (0.60-1.20) mg/dL Glucose 111 H 110 H (70-105) mg/dL Calcium 8.4 L 8.6 (8.6-10.3) mg/dL Adrenal panel 01/20/18 01/20/18 Range/Units 01:04 01:04 Sodium 136 137 (136-145) mEq/L Potassium 3.6 3.7 (3.5-5.1) mEq/L Chloride 106 106 (98-107) mEq/L Carbon Dioxide 24 24 (23-29) mEq/L BUN 11 11 (8-23) mg/dL Creatinine 0.53 L 0.52 L (0.60-1.20) mg/dL Glucose 111 H 110 H (70-105) mg/dL Calcium 8.4 L 8.6 (8.6-10.3) mg/dL All other labs normal. - Imaging Additional studies: Ct Thoracic and Lumbar Spine reviewed and is as follows: " CT/CT lumbar spine wo con IMPRESSION: 1. Acute mild superior endplate compression fracture of T12 with 25% vertebral body height loss. 2. Age-indeterminate, likely chronic mild T5 compression fracture with 25% vertebral body height loss. 3. Remote mild L2 compression fracture. No acute abnormality in the lumbar spine. " Consult Discharge Plan - Plan Referrals: Andrey Trujillo Jr, MD [Primary Care Provider] -
[2018-01-20] MEDS: Ondansetron 4 MG/2 ML VIAL IVP PRN ×2 (13:18→18:54)
--- NOTE | 2018-01-20 16:16 | Cardiology Consult Note ---
Date of Encounter: 01/20/18 Time of Encounter: 16:12 Assessment and Plan (1) Elevated troponin I level Current Visit: Yes Status: Acute Mild EKG changes along with mild troponins will pursue an ECHO to rule out RWMA prior to a NST. If RWMA noted or valvular disease may consider a LHC. 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 All questions were answered. Thank you for involving us in the care of your patient. Please call with any questions. History of Present Illness Consult date: 01/20/18 Consult reason: Elevated troponins Chief complaint: Chest pain History of present illness: Ms. Rhodes is a 87 year old female with no hx of CAD presents with recurrent falls and now complaining of chest pain. Mild eventual trop elevations adynamic noted during admission. Patient is a poor historian but describes chest pain, epigastric non radiating and not related to activity. EKG with ST changes concerning for ischemia. STEPHANIA 3/ over right pectoral region. Discussed invasive Vs non invasive and patient agrees to proceed with an ECHO if normal without RWMA will proceed with a NST to rule out ischemia. Past Med Surg Social Fam HX - Past Medical History Medical history: arthritis, cancer, hypertension Additional medical history: Brain aneurysm Psychiatric history: no psych history - Past Surgical History Surgical History: , hip replacement, hysterectomy - Social History Smoking Status: Former smoker Smokeless Tobacco Status: No Alcohol use: none Drug use: none - Family History Sister Hx Family Cancer: Yes (Pancreatic CA) Brother Hx Family Cancer: Yes (Lung CA) Medications and Allergies LORazepam [Ativan] 1 mg PO HS 09/29/16 [History] Pravastatin Sodium [Pravachol] 40 mg PO DAILY 09/29/16 [History] 3 Allergy/AdvReac Type Severity Reaction Status Date / Time Sulfa (Sulfonamide Allergy Hives Verified 01/18/18 10:31 Antibiotics) All Systems Review: The remainder of the systems were reviewed and are negative Physical Examination General: Conversant, No Apparent Distress HEENT: Atraumatic, Normocephaly, Mucus Membranes Moist Neck: No JVD, Normal carotid pulses Cardiac: Reg Rate and Rhythm, Normal S1 and S2, No Murmur (3/6 STEPHANIA ) Lungs: Normal Breath Sounds, No Wheeze, Rales, Rhonchi Neuro: Alert and responsive, No focal deficits noted Abdomen: Soft, Non-Tender Skin: No rashes noted on visualized skin Musculoskeletal: No Chest Wall Tenderness Extremities: No Clubbing, No Cyanosis, No Edema, Normal Pulses Results 01/20/18 01:04 01/20/18 01:04 Lab Results 01/20/18 01/20/18 01/20/18 01:04 01:04 01:04 WBC 7.1 Hgb 12.9 Hct 39.5 Plt Count 182 Sodium 136 137 Potassium 3.6 3.7 Chloride 106 106 Carbon Dioxide 24 24 BUN 11 11 Creatinine 0.53 L 0.52 L Glucose 111 H 110 H Calcium 8.4 L 8.6 Magnesium 1.9 Troponin I 0.07 H* 01/20/18 07:42 WBC Hgb Hct Plt Count Sodium Potassium Chloride Carbon Dioxide BUN Creatinine Glucose Calcium Magnesium Troponin I 0.08 H* Consult Discharge Plan - Plan Referrals: Andrey Trujillo Jr, MD [Primary Care Provider] -
[2018-01-20] MEDS: Acetaminophen 325 MG TABLET PO PRN (18:52)
--- NOTE | 2018-01-20 19:56 | Electrocardiograph Report ---
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
--- NOTE | 2018-01-20 19:57 | Electrocardiograph Report ---
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
[2018-01-20] MEDS ORDERED: *HR* HYDROcodone/Acet 5/325 mg TABLET PO ONE (20:21)
[2018-01-20] MEDS ORDERED: GI Cocktail 40 ML EACH PO ONE (21:29)
--- NOTE | 2018-01-20 21:57 | Event Note ---
Date of Encounter: 01/20/18 Time of Encounter: 21:46 Patient c/o chest pain @ 2042, rates the pain 610. Bp is 188/76. Trop and EKG ordered. One nitro was effective for pain. EKG showed SR with with short ID interval., inferior and adrianne-lateral infarcts, probably old. ST elevation, consider lateral injury, acute NV. The floor notified cardiology, who reviewed the EKGs. Cardiology's plan tonight is to do a non-cardiac work-up. The patient remain pain-free. GI cocktail was ordered. Waiting for trop.
[2018-01-21] MEDS: Nitroglycerin 0.4 MG TAB.SUBL SL PRN ×3 (01:43→02:11)
[2018-01-21] MEDS: Ondansetron 4 MG/2 ML VIAL IVP PRN ×2 (01:48→12:10)
[2018-01-21] MEDS ORDERED: *HR* OxyCODONE Immed Rel 5 MG TABLET PO PRN (02:26)
[2018-01-21 02:51] LABS: Basophils % 0.4 %; Eosinophils # 0.1 K/mcL (0.0-0.6); Eosinophils % 1.9 %; Hematocrit 38.6 % (35.3-44.9); Hemoglobin 12.9 g/dL (11.5-15.4); Immature Granulocytes % 0.4 % (0-4); Lymphocytes # 1.2 K/mcL (0.6-4.6); Lymphocytes % 17.8 %; Mean Corpuscular HGB Conc 33.4 g/dL (31.6-35.5); Mean Corpuscular Volume 86.7 fL (83.0-100.0); Mean Platelet Volume 9.3 fL (9.4-12.4); Monocytes # 0.8 K/mcL (0.0-1.3); Monocytes % 11.2 %; Neutrophils # 4.7 K/mcL (1.6-8.9); Platelet Count 193 K/mcL (140-400); Red Blood Count 4.45 M/mcL (3.82-4.97); Red Cell Distribution Width 14.2 % (11.5-14.5); Segmented Neutrophils % 68.3 %
[2018-01-21 03:10] LABS: BUN/Creatinine Ratio 13 (6-26); Blood Urea Nitrogen 7 mg/dL (8-23); Calcium 8.8 mg/dL (8.6-10.3); Carbon Dioxide 26 mEq/L (23-29); Chloride 103 mEq/L (98-107); Glucose 153 mg/dL (70-105); Osmolality,Calculated 285 (280-300); Potassium 3.5 mEq/L (3.5-5.1); Sodium 137 mEq/L (136-145); eGFR For African Americans > 60 (> 60); eGFR For Non-African Americans > 60 (> 60)
[2018-01-21] MEDS ORDERED: Nitroglycerin 1 INCH/GM PACKET TP ONE ×2 (04:26→04:45)
[2018-01-21] MEDS ORDERED: *HR* Enoxaparin 40 MG/0.4 ML SYRINGE SQ SCH (06:00)
[2018-01-21] MEDS ORDERED: *HR* OxyCODONE Immed Rel 5 MG TABLET PO ONE (06:25)
[2018-01-21] MEDS ORDERED: *HR* Metoprolol 5 MG/5 ML VIAL IVP PRN (06:34)
[2018-01-21] MEDS: Aspirin 81 MG TAB.CHEW PO SCH (09:06)
[2018-01-21 11:36] VITALS: BP 166/79
--- NOTE | 2018-01-21 13:58 | Discharge Summary ---
- NOTES TO OUTPATIENT PROVIDER Notes to Outpatient Provider: Patient admitted s/p recurrent falls resulting in compression fractures of the thoracic vertevebra. She was ortho/spine does not see need for surgical intervention. The patient can be discharged home. She has been instructed to follow-up with PCP within 1 week of discharge. Orders not resulted at time of discharge: Pending orders 01/20/18 20:46 EKG [ECG 12 lead ECG] [ECG] Stat 01/21/18 11:43 UA w. reflex culture [Urinalysis Reflex Cult & Micro] [URIN] Routine Date of Encounter: 01/21/18 Time of Encounter: 13:54 - Discharge Diagnosis (1) Compression fracture of body of thoracic vertebra Priority: Primary Status: Acute Assessment and Plan: Acute T12 compression fracture 2/2 recurrent falls Patient with C/o lower back pain Dr. Bianchi seeing in consultation-appreciate recommendations -does not feel patient needs surgical intervention at this time Continue NSAIDS at home for pain PT/OT/social work msw have seen the patient; advise to use walker with ambulation at home. Additional recommendations for 24 hour supervision at home due to mentation. Patient was offered SNF placement this was D/W daughter as well. Both patient and daughter refused SNF placement at this time opting for the patient to discharge home with family help. She has been instructed to f/u with PCP in 1-week of d/c. Also, she has been instructed to discuss the benefits of SNF placement with advancing demention with her PCP upon f/u. Daughter at bedside with patient and verbalizes understanding. Denies any further questions. (2) Recurrent falls Priority: Secondary Status: Acute Assessment and Plan: Patient presents with recurrent falls Falls resulting in acute T12 compression fracture Patient may benefit from placement for rehabilitation Consult PT/OT/social work msw and nurse navigator The patient does not wish for inpatient rehabilitation she may benefit from home health with physical therapy (3) DJD (degenerative joint disease) Priority: Secondary Status: Chronic Qualifiers: Osteoarthritis location: spine Spinal region: thoracic Spinal osteoarthritis complication: unspecified spinal osteoarthritis Qualified Code( s): M47.814 - Spondylosis without myelopathy or radiculopathy, thoracic region (4) Dementia Priority: Secondary Status: Chronic Assessment and Plan: Chronic Qualifiers: Dementia type: unspecified type Dementia behavioral disturbance: without behavioral disturbance Qualified Code(s): F03.90 - Unspecified dementia without behavioral disturbance (5) HTN (hypertension) Priority: Secondary Status: Chronic Assessment and Plan: History of HTN, stable this morning but elevated this afternoon. Likely 2/2 pain with spinal compression fractures started on metoprolol, BP improved but remains slightly elevated continue metroprolol at home upon discharge Instructed to follow-up with PCP within one week for further monitoring of blood pressure Qualifiers: Hypertension type: essential hypertension Qualified Code(s): I10 - Essential (primary) hypertension (6) Hyperlipidemia Priority: Secondary Status: Chronic Assessment and Plan: Lipitor Qualifiers: Hyperlipidemia type: pure hypercholesterolemia Qualified Code(s): E78.00 - Pure hypercholesterolemia, unspecified; E78.0 - Pure hypercholesterolemia (7) Elevated troponin I level Priority: Secondary Status: Acute Assessment and Plan: Throughout the stay patient was noted to have elevated troponins. Etiology unclear TTE completed with findings of- LVEF 65%. Moderate concentric left ventricular hypertrophy. No significant LVOT gradient. Diastolic dysfunction with elevated filling pressures. Mildly dilated RV with normal function. Severely dilated left atrium. Mild mitral regurgitation. 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 Moderate-severe aortic stenosis. Moderate tricuspid regurgitation. Mild pulmonic regurgitation. Moderate to severe pulmonary hypertension. Atherosclerotic plaque of the ascending thoracic aorta. Patient is not a candidate for stress test due to severe aortic stenosis. Was offered LHC by cardiology but patient declined. Patient is high risk for PCI and long-term dual antiplatelet therapy with recurrent falls. Should be noted the patient has had intermittent episodes with complaints of chest pain/discomfort. To which she received 1 SL nitroglycerin with relief of discomfort. No EKG changes concerning for ischemia when compared to prior. Patient is refusing further cardiac workup at this time. Hospital course: Ms. Rhodes is a 87 year old female pplease see assessment and plan for Discharge discussed with: patient, nurse, case management, data communications software consultant - Time Spent with Patient Total time spent providing and/or coordinating discharge services: Less than 30 minutes - Discharge Medications Prescriptions: Metoprolol [Lopressor] 25 mg PO BID 30 Days #60 tablet Home Medications: LORazepam [Ativan] 1 mg PO HS 09/29/16 [History] Pravastatin Sodium [Pravachol] 40 mg PO DAILY 09/29/16 [History] Metoprolol [Lopressor] 25 mg PO BID 30 Days #60 tablet 01/21/18 [Rx] Allergies/Adverse Reactions: 3 Allergy/AdvReac Type Severity Reaction Status Date / Time Sulfa (Sulfonamide Allergy Hives Verified 01/18/18 10:31 Antibiotics) Date of admission: 01/19/18 19:13 Primary care physician: Andrey Trujillo Jr, MD Consults: 01/20/18 10:30 Consult to Cardiology [CONS] Routine Comment: Consulting Provider: [facility] Reason for Consult: chest pain, elevated troponin Time Notified: 10:31 Call Completed: Yes 01/20/18 12:08 Consult to Physician [CONS] Routine Consulting Provider: Ankush Bianchi Reason for Consult: compression fracture Time Notified: 12:08 Call Completed: Yes Discharging clinician: Javed Nye Anticipated date of discharge: 01/21/18 - Constitutional Vitals: Temp Pulse Resp BP Pulse Ox 98.1 F 82 16 166/79 93 01/21/18 11:32 01/21/18 11:32 01/21/18 11:32 01/21/18 11:32 01/21/18 11:32 General appearance: Present: cooperative, A&O X 3, no acute distress - Head Head exam: Present: atraumatic, normocephalic - Eye Eye exam: Present: PERRL, conjuntiva pink, sclera anicteric Pupils: Present: PERRL - Neck Neck exam general surgery: Present: supple, trachea midline. Absent: lymphadenopathy - Respiratory Respiratory exam: Present: CTAB. Absent: accessory muscle use, rales, rhonchi, wheezes - Cardiovascular Cardiovascular exam: Present: RRR, +S1, +S2. Absent: diastolic murmur, gallop, rubs, systolic murmur - GI/Abdominal GI/Abdominal exam: Present: normal bowel sounds, soft, no peritoneal signs. Absent: distended, tenderness - Extremities Exam Extremities exam: Present: warm, radial pulses palpable and symmetrical. Absent : calf tenderness, cyanotic, pedal edema - Neurological Exam Neurological exam: Present: CN II-XII intact, oriented X3, no focal deficits. Absent: pronater drift, facial droop, speech deficit - Skin Skin exam: Present: dry, intact - Patient Status Disposition: Home, Self-Care Condition: Fair Overall status at discharge: patient is progressing back to baseline - Discharge Instructions Follow Up With: Andrey Trujillo Jr, MD [Primary Care Provider] - - Diet and Activity Activity: ambulate only with your walker, increase activity as tolerated, resume usual activities as tolerated Diet: advance to your usual diet
[2018-01-21] MEDS: Acetaminophen 325 MG TABLET PO PRN (14:19)
--- NOTE | 2018-01-21 15:49 | Physician Discharge Referral ---
Home Health/Hosp Referral Info Transfer to: Home Health Provider in Charge Post Discharge: PCP - Diagnosis (1) Compression fracture of body of thoracic vertebra Priority: Primary Status: Acute (2) Recurrent falls Priority: Secondary Status: Acute (3) DJD (degenerative joint disease) Priority: Secondary Status: Chronic (4) Dementia Priority: Secondary Status: Chronic (5) HTN (hypertension) Priority: Secondary Status: Chronic (6) Hyperlipidemia Priority: Secondary Status: Chronic (7) Elevated troponin I level Priority: Secondary Status: Acute - Respiratory Orders Smoking Cessation: Smoking cessation has been advised. For more information, call the [place] Tobacco Quit Line at 8-408-LVGB-NOW. - Diet/Nutrition Diet/Nutrition Orders: Cardiac - Activity Activity Orders: Ambulate, Walker - Services Needed Following services are medically necessary services: Home Health Aide, Physical Therapy, Occupational Therapy - Transfer Medications Prescriptions: Metoprolol [Lopressor] 25 mg PO BID 30 Days #60 tablet Home Medications: LORazepam [Ativan] 1 mg PO HS 09/29/16 [History] Pravastatin Sodium [Pravachol] 40 mg PO DAILY 09/29/16 [History] Metoprolol [Lopressor] 25 mg PO BID 30 Days #60 tablet 01/21/18 [Rx] Allergies/Adverse Reactions: 3 Allergy/AdvReac Type Severity Reaction Status Date / Time Sulfa (Sulfonamide Allergy Hives Verified 01/18/18 10:31 Antibiotics) Certification: Further, I certify that my clinical findings support that this patient is homebound (i.e. absences from home require considerable and taxing effort and are for medical reasons or synagogue services or infrequently or short duration when for other reasons) because: Homebound Reason: Patient requires assistance of a person or device to safely leave home Attestation: My signature below is to certify that this patient is under my care and that I, or nurse practitioner, or a physician's periodontal assistant working with me, has a face-to -face encounter with this patient.
--- NOTE | 2018-01-24 20:44 | Electrocardiograph Report ---
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
== END 2018-01-21 16:39 | disposition home or self-care (01) ==
LOC: EMEROO 10:19 → 3BNU 10:19 → EMEROO 15:38 → 3BNU 15:38 → UNDODISIN 01-19 13:20
PROVIDERS: ADMIT Family Medicine; ATTEND Family Medicine

== ENCOUNTER 2018-01-22 05:43 | Observation (INO) ==
[2018-01-22] MEDS ORDERED: 0.9 % Sodium Chloride 1,000 ML IVC ONE (05:59)
--- NOTE | 2018-01-22 06:02 | Emergency Department Note ---
Disposition Clinical Impression: Concussion without loss of consciousness Qualifiers: Encounter type: subsequent encounter Qualified Code(s): S06.0X0D - Concussion without loss of consciousness, subsequent encounter Disposition: Still a Patient General Adult HPI - General Chief complaint: ED Fall Stated complaint: back pain/fall Time Seen by Provider: 01/22/18 05:49 Source: EMS Limitations: no limitations - History of Present Illness Pain Scale: 0 - Related Data Home Medications Medication Instructions Recorded Confirmed LORazepam [Ativan] 1 mg PO HS 09/29/16 01/18/18 Pravastatin Sodium [Pravachol] 40 mg PO DAILY 09/29/16 01/18/18 Previous Rx's Medication Instructions Recorded Metoprolol [Lopressor] 25 mg PO BID 30 Days #60 tablet 01/21/18 Allergies Allergy/AdvReac Type Severity Reaction Status Date / Time Sulfa (Sulfonamide Allergy Hives Verified 01/18/18 10:31 Antibiotics) Past Medical History - Past Medical History Medical history: Reports: arthritis, cancer, hypertension Surgical history: Reports: , hip replacement, hysterectomy Psychiatric history: Reports: no psych history - Social History Smoking Status: Former smoker Smokeless Tobacco Status: No Alcohol use: Reports: none Drug use: Reports: none Physical Exam - General Limitations: no limitations General appearance: alert Course - Reevaluation(s) Reevaluation #1: Attestation note I examined this patient and my medical decision-making was reviewed with the emergency medicine resident. I agree with the documented findings, disposition and treatment plan as described except to the extent set forth below. Patient seen with emergency medicine resident Lino Rangel, Please see a copy of his note for details of the H&P, ED evaluation, management and disposition. I have independently evaluated the patient and confirmed appropriate portions of the history and physical exam. Briefly: A 7-year-old female mechanical fall recent past sustaining compression fracture to the lumbar spine is been having repeated falls is home alone no family resources. Patient will get reimaged today and will be admitted for [facility] facility [facility]. Admission disposition pending Time: 06:00 Vital Signs Temperature 97.8 F 01/22/18 05:52 Pulse Rate 106 01/22/18 05:52 Respiratory Rate 18 01/22/18 05:52 Blood Pressure 192/122 01/22/18 05:52 O2 Sat by Pulse Oximetry 92 01/22/18 05:52 Temperature 97.8 F 01/22/18 05:52 Pulse Rate 106 01/22/18 05:52 Respiratory Rate 18 01/22/18 05:52 Blood Pressure 192/122 01/22/18 05:52 O2 Sat by Pulse Oximetry 92 01/22/18 05:52 Oxygen Delivery Oxygen Delivery Room Air
[2018-01-22] MEDS ORDERED: *HR* LORazepam 2 MG/ML VIAL IVP ONE (06:11)
[2018-01-22] MEDS ORDERED: *HR* FentaNYL (PF) 100 MCG/2 ML VIAL IVP ONE ×2 (06:11→08:22)
--- NOTE | 2018-01-22 06:28 | Emergency Department Note ---
Disposition Clinical Impression: Concussion without loss of consciousness Qualifiers: Encounter type: subsequent encounter Qualified Code(s): S06.0X0D - Concussion without loss of consciousness, subsequent encounter Disposition: Still a Patient Forms: ED Satisfaction Letter Fall HPI - General Chief Complaint: ED Fall Stated Complaint: back pain/fall Time Seen by Provider: 01/22/18 05:49 Source: family, EMS Mode of arrival: EMS Limitations: altered mental status, age Nursing Notes Reviewed: Yes Vital Signs Reviewed: Yes - History of Present Illness HPI Narrative: 87-year-old female presents after complaining of severe back pain. Patient states that she has been at home, she is discharged from hospital last week. Said multiple falls, she is a new T12 compression fracture on records review, patient states that she has recently been in the hospital they wanted her to go to [facility] facility patient said went to go home. Patient denies headache chest pain abdominal pain. Patient has had some back pain. Patient states that she has fallen a couple times but she did not fall today that the pain was just worse. Pt Subjective Complaint: fall Onset (ago): day(s) Fall From: standing Fall Witnessed: no Place Fall Occurred: home Loss of Consciousness: none Prolonged Down Time?: unclear Location of injury: head - Related Data Home Medications Medication Instructions Recorded Confirmed LORazepam [Ativan] 1 mg PO HS 09/29/16 01/18/18 Pravastatin Sodium [Pravachol] 40 mg PO DAILY 09/29/16 01/18/18 Previous Rx's Medication Instructions Recorded Metoprolol [Lopressor] 25 mg PO BID 30 Days #60 tablet 01/21/18 Allergies Allergy/AdvReac Type Severity Reaction Status Date / Time Sulfa (Sulfonamide Allergy Hives Verified 01/18/18 10:31 Antibiotics) All systems ED: reviewed and negative except as stated. Review of Systems: As Per HPI Constitutional: Denies: fever, chills Eyes: Denies: eye pain Cardiovascular: Denies: chest pain Respiratory: Denies: cough, dyspnea Gastrointestinal: Denies: abdominal pain Genitourinary: Denies: urgency Musculoskeletal: Reports: as per HPI, back pain Integumentary: Denies: rash, abrasion Neurological: Denies: headache Psychiatric: Denies: anxiety Endocrine: Denies: fatigue Fall PMH - Past Medical History Medical history: Reports: arthritis, cancer, hypertension Surgical history: Reports: , hip replacement, hysterectomy Psychiatric history: Reports: no psych history - Social History Smoking Status: Former smoker Alcohol use: Reports: none Drug use: Reports: none Physical Exam - General Limitations: no limitations General appearance: alert - Expanded Head Exam Head exam physicial: Present: other (Some ecchymosis around her bilateral eyes, no pain with extraocular movement, no evidence of entrapment) - ENT ENT exam: mucous membranes dry - Neck Neck exam: Present: normal inspection, full ROM - Chest Chest inspection: Present: normal inspection - Respiratory Respiratory exam: Present: normal lung sounds bilaterally. Absent: respiratory distress - Cardiovascular Cardiovascular exam: Present: normal rhythm, tachycardia - Abdominal Exam Abdominal exam: Present: soft, distention. Absent: guarding - Extremities Exam Extremities exam: Present: normal inspection, full ROM - Expanded Lower Extremity Exam Hip/Pelvis exam: Present: normal inspection, full ROM - Back Exam Back exam: Present: normal inspection, other (No step-off, tenderness to palpation diffusely mostly in the T and L-spine) - Neurological Exam Neurological exam: Present: alert, CN II-XII intact. Absent: oriented X3 (x2), motor sensory deficit Course Course Narrative: Patient has no gross motor deficits, she has moderate tenderness to palpation her back diffusely, mostly in the thoracic lumbar junction, records review showed a T12 endplate fracture in that she refused to have [facility] facility at this time the patient's feeling worse having more pain, given her some Tylenol for pain and recheck in CAT scans. Vital Signs Temperature 97.8 F 01/22/18 05:52 Pulse Rate 106 01/22/18 05:52 Respiratory Rate 01/22/18 05:52 Blood Pressure 192/122 01/22/18 05:52 O2 Sat by Pulse Oximetry 92 01/22/18 05:52 Temperature 97.8 F 01/22/18 05:52 Pulse Rate 106 01/22/18 05:52 Respiratory Rate 18 01/22/18 05:52 Blood Pressure 192/122 01/22/18 05:52 O2 Sat by Pulse Oximetry 01/22/18 05:52 Oxygen Delivery Oxygen Delivery Room Air Fall - Lab Data Lab results reviewed: Yes I reviewed the patient's lab results. - Radiology Data Radiology results reviewed: Yes I reviewed the patient's radiology results. - EKG Data EKG attestation: Yes I reviewed and interpreted this EKG. EKG shows normal: sinus rhythm Rate: tachycardia (122 bpm MS 16 QRS [address] segment elevations or depressions, sinus tachycardia) Rhythm: NSR S.B.A.R. - S.B.A.R. Situation: Demographics, MOA Background: Presenting Complaint, Relevant PMH, Meds, & Allergies Assessment: Vital Signs, Course and respsone to treatment, Exam Concerns, Patient/Family Expectation, Pertinant Lab Results, Outstanding Labs Recommendation: Barrier(s) to disposition, Recommendation based on pending studies, treatments, or consults S.B.A.R. Repor Time: 07:12
[2018-01-22 06:55] LABS: Basophils % 0.5 %; Eosinophils # 0.1 K/mcL (0.0-0.6); Eosinophils % 1.4 %; Hematocrit 43.8 % (35.3-44.9); Immature Granulocytes % 0.3 % (0-4); Lymphocytes # 1.4 K/mcL (0.6-4.6); Lymphocytes % 16.2 %; Mean Corpuscular HGB Conc 34.5 g/dL (31.6-35.5); Mean Corpuscular Hemoglobin 29.3 pg (28.0-33.3); Mean Corpuscular Volume 84.9 fL (83.0-100.0); Mean Platelet Volume 9.3 fL (9.4-12.4); Monocytes # 0.8 K/mcL (0.0-1.3); Monocytes % 9.3 %; Neutrophils # 6.4 K/mcL (1.6-8.9); Platelet Count 244 K/mcL (140-400); Red Blood Count 5.16 M/mcL (3.82-4.97); Red Cell Distribution Width 14.3 % (11.5-14.5); Segmented Neutrophils % 72.3 %
[2018-01-22 07:00] LABS: Hemoglobin 15.1 g/dL (11.5-15.4)
[2018-01-22 07:07] LABS: Alanine Aminotransferase 19 Units/L (7-52); Albumin 4.1 g/dL (3.5-5.7); Albumin/Globulin Ratio 1.4 (1.1-2.2); Alkaline Phosphatase 78 Units/L (34-104); Aspartate Amino Transferase 24 Units/L (13-39); BUN/Creatinine Ratio 16 (6-26); Bilirubin,Total 0.9 mg/dL (0.3-1.0); Blood Urea Nitrogen 9 mg/dL (8-23); Calcium 9.4 mg/dL (8.6-10.3); Carbon Dioxide 27 mEq/L (23-29); Chloride 97 mEq/L (98-107); Glucose 132 mg/dL (70-105); Osmolality,Calculated 279 (280-300); Potassium 3.4 mEq/L (3.5-5.1); Sodium 134 mEq/L (136-145); Total Protein 7.1 g/dL (6.4-8.9); eGFR For African Americans > 60 (> 60); eGFR For Non-African Americans > 60 (> 60)
[2018-01-22 07:09] LABS: Bilirubin,Urine Negative (Negative); Blood,Urine Negative (Negative); Clarity,Urine Cloudy (Clear); Color,Urine Yellow (Yellow); Glucose,Urine (UA) Normal (Normal); Ketones,Urine Negative (Negative); Leukocyte Esterase,Urine Moderate (Negative); Nitrite,Urine Positive (Negative); PH,Urine 7.5 pH Units (5.0-8.0); Protein,Urine Negative (Neg-Trace); Specific Gravity,Urine 1.012 (1.010-1.025); Urobilinogen,Urine Normal (Normal)
[2018-01-22 07:12] LABS: Bacteria,Urine Many per hpf (None-Few); Hyaline Casts,Urine None Seen per lpf (None-Few); RBC,Urine 0-3 per hpf (0-3); Squamous Epithelial Cell,Urine None Seen per lpf (None-Few); WBC,Urine 50-100 per hpf (0-3)
[2018-01-22] MEDS ORDERED: cefTRIAXone 1,000 MG in Water for inj. (sterile) 20 ML 10 ML IVP ONE (07:20)
--- NOTE | 2018-01-22 07:47 | Emergency Department Note ---
Disposition Clinical Impression: Frequent falls, Compression fracture Concussion without loss of consciousness Qualifiers: Encounter type: subsequent encounter Qualified Code(s): S06.0X0D - Concussion without loss of consciousness, subsequent encounter UTI (urinary tract infection) Qualifiers: Urinary tract infection type: acute cystitis Hematuria presence: without hematuria Qualified Code(s): N30.00 - Acute cystitis without hematuria Disposition: Admitted As Inpatient Condition: Undetermined Referrals: Andrey Trujillo Jr, MD [Primary Care Provider] - Forms: ED Satisfaction Letter Time of Disposition: 08:38 General Adult HPI - General Chief complaint: ED Fall Stated complaint: back pain/fall Time Seen by Provider: 01/22/18 05:49 Source: family, EMS Mode of arrival: EMS Limitations: no limitations Nursing Notes Reviewed: Yes Vital Signs Reviewed: Yes - History of Present Illness HPI Narrative: 87-year-old male 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 Rangel. In summary, this is an 87-year-old female with history of multiple falls and he and L-spine fractures that her compression fractures. The patient recently suffered a thoracic endplate fracture. It was managed nonoperatively and during last admission the patient was attempted to be placed in rehabilitation facility in which family refused. The patient continues to experience a large amount of pain at home and was noted to be altered from her baseline mental status per family. EMS was called and transported her to the emergency department. The patient was worked up here in the emergency department found to have a urinary tract infection. Given the patient's reveals falls and new alteration in mentation from baseline, further imaging studies were performed. Images are currently pending. After speaking with the patient's daughter, she states that it may be time for rehabilitation facility at this time. The patient will be admitted to the hospital for further workup and care. Daughter agrees to plan. Pain Scale: 0 - Related Data Home Medications Medication Instructions Recorded Confirmed LORazepam [Ativan] 1 mg PO HS 09/29/16 01/18/18 Pravastatin Sodium [Pravachol] 40 mg PO DAILY 09/29/16 01/18/18 Previous Rx's Medication Instructions Recorded Metoprolol [Lopressor] 25 mg PO BID 30 Days #60 tablet 01/21/18 Allergies Allergy/AdvReac Type Severity Reaction Status Date / Time Sulfa (Sulfonamide Allergy Hives Verified 01/18/18 10:31 Antibiotics) All systems ED: reviewed and negative except as stated. Constitutional: Denies: fever, chills Eyes: Denies: eye pain Cardiovascular: Denies: chest pain Respiratory: Denies: cough, dyspnea Gastrointestinal: Denies: abdominal pain Genitourinary: Denies: urgency Musculoskeletal: Reports: as per HPI, back pain Integumentary: Denies: rash, abrasion Neurological: Denies: headache Psychiatric: Denies: anxiety Endocrine: Denies: fatigue Past Medical History - Past Medical History Source: old records reviewed, obtained from family Medical history: Reports: arthritis, cancer, hypertension Surgical history: Reports: , hip replacement, hysterectomy Psychiatric history: Reports: no psych history - Social History Smoking Status: Former smoker Smokeless Tobacco Status: No Alcohol use: Reports: none Drug use: Reports: none Physical Exam - General Limitations: no limitations General appearance: alert, in no apparent distress - Head Head exam: atraumatic, normocephalic, normal inspection - Eye Eye exam: Present: normal appearance, PERRL, EOMI - ENT ENT exam: normal exam, normal oropharynx, mucous membranes moist - Neck Neck exam: Present: normal inspection - Chest Chest inspection: Present: normal inspection, symmetric chest wall rise - Respiratory Respiratory exam: Present: normal lung sounds bilaterally - Cardiovascular Cardiovascular exam: Present: normal rhythm, tachycardia, normal heart sounds - Abdominal Exam Abdominal exam: Present: soft, Non-Tender. Absent: tenderness, distention, guarding, rebound, rigidity - Extremities Exam Extremities exam: Present: normal inspection, full ROM. Absent: tenderness, pedal edema - Neurological Exam Neurological exam: Present: alert - Skin Skin exam: Present: warm, dry, intact, normal color Course Vital Signs Temperature 97.8 F 01/22/18 05:52 Pulse Rate 106 01/22/18 05:52 Respiratory Rate 18 01/22/18 05:52 Blood Pressure 192/122 01/22/18 05:52 O2 Sat by Pulse Oximetry 92 01/22/18 05:52 Temperature 97.8 F 01/22/18 05:52 Pulse Rate 109 01/22/18 06:58 Respiratory Rate 18 01/22/18 06:58 Blood Pressure 192/100 01/22/18 06:58 O2 Sat by Pulse Oximetry 98 01/22/18 07:56 Oxygen Delivery Oxygen Delivery Room Air Medical Decision Making - MDM Narrative Medical decision making narrative: Patient's workup in the emergency department demonstrates no acute injuries. The patient's lab work revealed a urinary tract infection. The patient was started on 1 g of IV Rocephin. The patient will be admitted to the hospital at this time for likely placement to rehabilitation care. The patient started agrees to plan of care. No further questions or concerns noted at this time. Accepted by Dr. Mina. - Lab Data Lab results reviewed: Yes I reviewed the patient's lab results. Result diagrams: 01/22/18 05:59 01/22/18 05:59 Lab Results 01/22/18 01/22/18 01/22/18 Range/Units 05:59 05:59 06:01 WBC 8.8 (4.3-11.1) K/mcL RBC 5.16 H (3.82-4.97) M/mcL Hgb 15.1 D (11.5-15.4) g/dL Hct 43.8 (35.3-44.9) % MCV 84.9 (83.0-100.0) fL MCH 29.3 (28.0-33.3) pg MCHC 34.5 (31.6-35.5) g/dL RDW 14.3 (11.5-14.5) % Plt Count 244 (140-400) K/mcL MPV 9.3 L (9.4-12.4) fL Immature Gran % 0.3 (0-4) % Seg Neutrophils % 72.3 % Lymphocytes % 16.2 % Monocytes % 9.3 % Eosinophils % 1.4 % Basophils % 0.5 % Neutrophils # 6.4 (1.6-8.9) K/mcL Lymphocytes # 1.4 (0.6-4.6) K/mcL Monocytes # 0.8 (0.0-1.3) K/mcL Eosinophils # 0.1 (0.0-0.6) K/mcL Basophils # 0.0 (0.0-0.2) K/mcL Sodium 134 L (136-145) mEq/L Potassium 3.4 L (3.5-5.1) mEq/L Chloride 97 L (98-107) mEq/L Carbon Dioxide 27 (23-29) mEq/L BUN 9 (8-23) mg/dL Creatinine 0.58 L (0.60-1.20) mg/dL Est GFR ( Amer) > 60 (> 60) Est GFR (Non-Af Amer) > 60 (> 60) BUN/Creatinine Ratio 16 (6-26) Glucose 132 H (70-105) mg/dL Calculated Osmolality 279 L (280-300) Calcium 9.4 (8.6-10.3) mg/dL Total Bilirubin 0.9 (0.3-1.0) mg/dL AST 24 (13-39) Units/L ALT 19 (7-52) Units/L Alkaline Phosphatase 78 (34-104) Units/L Troponin I 0.04 H* (< 0.04) ng/mL Serum Total Protein 7.1 (6.4-8.9) g/dL Albumin 4.1 (3.5-5.7) g/dL Globulin 3.0 (2.4-3.5) g/dL Albumin/Globulin Ratio 1.4 (1.1-2.2) Urine Color (Yellow) Urine Clarity (Clear) Urine pH (5.0-8.0) pH Units Ur Specific [place] (1.010-1.025) Urine Protein (Neg-Trace) mg/dL Urine Glucose (UA) (Normal) mg/dL Urine Ketones (Negative) mg/dL Urine Blood (Negative) Urine Nitrite (Negative) Urine Bilirubin (Negative) Urine Urobilinogen (Normal) mg/dL Ur Leukocyte Esterase (Negative) Urine Microscopic RBC (0-3) per hpf Urine Microscopic WBC (0-3) per hpf Ur Squamous Epith Cells (None-Few) per lpf Urine Bacteria (None-Few) per hpf Hyaline Casts (None-Few) per lpf Ur Culture Indicated? (NO) 01/22/18 Range/Units 06:55 WBC (4.3-11.1) K/mcL RBC (3.82-4.97) M/mcL Hgb (11.5-15.4) g/dL Hct (35.3-44.9) % MCV (83.0-100.0) fL MCH (28.0-33.3) pg MCHC (31.6-35.5) g/dL RDW (11.5-14.5) % Plt Count (140-400) K/mcL MPV (9.4-12.4) fL Immature Gran % (0-4) % Seg Neutrophils % % Lymphocytes % % Monocytes % % Eosinophils % % Basophils % % Neutrophils # (1.6-8.9) K/mcL Lymphocytes # (0.6-4.6) K/mcL Monocytes # (0.0-1.3) K/mcL Eosinophils # (0.0-0.6) K/mcL Basophils # (0.0-0.2) K/mcL Sodium (136-145) mEq/L Potassium (3.5-5.1) mEq/L Chloride (98-107) mEq/L Carbon Dioxide (23-29) mEq/L BUN (8-23) mg/dL Creatinine (0.60-1.20) mg/dL Est GFR ( Amer) (> 60) Est GFR (Non-Af Amer) (> 60) BUN/Creatinine Ratio (6-26) Glucose (70-105) mg/dL Calculated Osmolality (280-300) Calcium (8.6-10.3) mg/dL Total Bilirubin (0.3-1.0) mg/dL AST (13-39) Units/L ALT (7-52) Units/L Alkaline Phosphatase (34-104) Units/L Troponin I (< 0.04) ng/mL Serum Total Protein (6.4-8.9) g/dL Albumin (3.5-5.7) g/dL Globulin (2.4-3.5) g/dL Albumin/Globulin Ratio (1.1-2.2) Urine Color Yellow (Yellow) Urine Clarity Cloudy A (Clear) Urine pH 7.5 (5.0-8.0) pH Units Ur Specific [place] 1.012 (1.010-1.025) Urine Protein Negative (Neg-Trace) mg/dL Urine Glucose (UA) Normal (Normal) mg/dL Urine Ketones Negative (Negative) mg/dL Urine Blood Negative (Negative) Urine Nitrite Positive A (Negative) Urine Bilirubin Negative (Negative) Urine Urobilinogen Normal (Normal) mg/dL Ur Leukocyte Esterase Moderate H (Negative) Urine Microscopic RBC 0-3 (0-3) per hpf Urine Microscopic WBC 50-100 H (0-3) per hpf Ur Squamous Epith Cells None Seen (None-Few) per lpf Urine Bacteria Many H (None-Few) per hpf Hyaline Casts None Seen (None-Few) per lpf Ur Culture Indicated? YES A (NO) - Radiology Data Radiology results reviewed: Yes I reviewed the patient's radiology results. Chest X-Ray 01/22/18 05:59 IMPRESSION: Mild pulmonary edema. D/ / Boyd Perez MD / Boyd Perez MD Interpreting Provider: Boyd Perez MD Head CT 01/22/18 05:59 IMPRESSION: No acute intracranial abnormality. Cerebral atrophy. Stable 11 mm partly calcified nodule along the left side of the interhemispheric fissure in the frontal region likely meningioma. Degenerative changes in the cervical spine without acute fracture. D/ / Brooks Branch MD / Brooks Branch MD Interpreting Provider: Brooks Branch MD Lumbar Spine CT 01/22/18 05:59 IMPRESSION: 1. No significant change superior endplate fracture of T12. 2. Age indeterminate mild superior endplate fracture of T5. 3. Remote L2 superior endplate fracture. D/ / Nando Flores MD / Nando Flores MD Interpreting Provider: Nando Flores MD Cervical Spine CT 01/22/18 06:44 IMPRESSION: No acute intracranial abnormality. Cerebral atrophy. Stable 11 mm partly calcified nodule along the left side of the interhemispheric fissure in the frontal region likely meningioma. Degenerative changes in the cervical spine without acute fracture. D/ / Brooks Branch MD / Brooks Branch MD Interpreting Provider: Brooks Branch MD Thoracic Spine CT 01/22/18 06:45
[2018-01-22] MEDS ORDERED: Ketorolac 15 MG/ML VIAL IVP ONE (08:22)
--- NOTE | 2018-01-22 08:22 | Emergency Department Note ---
Disposition Clinical Impression: Frequent falls, Compression fracture Concussion without loss of consciousness Qualifiers: Encounter type: subsequent encounter Qualified Code(s): S06.0X0D - Concussion without loss of consciousness, subsequent encounter UTI (urinary tract infection) Qualifiers: Urinary tract infection type: acute cystitis Hematuria presence: without hematuria Qualified Code(s): N30.00 - Acute cystitis without hematuria Disposition: Admitted As Inpatient Condition: Undetermined Referrals: Andrey Trujillo Jr, MD [Primary Care Provider] - Forms: ED Satisfaction Letter General Adult HPI - General Chief complaint: ED Fall Stated complaint: back pain/fall Time Seen by Provider: 01/22/18 05:49 Source: family, EMS Mode of arrival: EMS Limitations: no limitations - History of Present Illness Pain Scale: 0 - Related Data Home Medications Medication Instructions Recorded Confirmed LORazepam [Ativan] 1 mg PO HS 09/29/16 01/18/18 Pravastatin Sodium [Pravachol] 40 mg PO DAILY 09/29/16 01/18/18 Previous Rx's Medication Instructions Recorded Metoprolol [Lopressor] 25 mg PO BID 30 Days #60 tablet 01/21/18 Allergies Allergy/AdvReac Type Severity Reaction Status Date / Time Sulfa (Sulfonamide Allergy Hives Verified 01/18/18 10:31 Antibiotics) Constitutional: Denies: fever, chills Eyes: Denies: eye pain Cardiovascular: Denies: chest pain Respiratory: Denies: cough, dyspnea Gastrointestinal: Denies: abdominal pain Genitourinary: Denies: urgency Musculoskeletal: Reports: as per HPI, back pain Integumentary: Denies: rash, abrasion Neurological: Denies: headache Psychiatric: Denies: anxiety Endocrine: Denies: fatigue Past Medical History - Past Medical History Medical history: Reports: arthritis, cancer, hypertension Surgical history: Reports: , hip replacement, hysterectomy Psychiatric history: Reports: no psych history - Social History Smoking Status: Former smoker Smokeless Tobacco Status: No Alcohol use: Reports: none Drug use: Reports: none Physical Exam - General Limitations: no limitations General appearance: alert, in no apparent distress Course Vital Signs Temperature 97.8 F 01/22/18 05:52 Pulse Rate 106 01/22/18 05:52 Respiratory Rate 18 01/22/18 05:52 Blood Pressure 192/122 01/22/18 05:52 O2 Sat by Pulse Oximetry 92 01/22/18 05:52 Temperature 97.8 F 01/22/18 05:52 Pulse Rate 109 01/22/18 06:58 Respiratory Rate 18 01/22/18 06:58 Blood Pressure 192/100 01/22/18 06:58 O2 Sat by Pulse Oximetry 98 01/22/18 07:56 Oxygen Delivery Oxygen Delivery Room Air Medical Decision Making - Lab Data Result diagrams: 01/22/18 05:59 01/22/18 05:59 Lab Results 01/22/18 01/22/18 01/22/18 Range/Units 05:59 05:59 06:01 WBC 8.8 (4.3-11.1) K/mcL RBC 5.16 H (3.82-4.97) M/mcL Hgb 15.1 D (11.5-15.4) g/dL Hct 43.8 (35.3-44.9) % MCV 84.9 (83.0-100.0) fL MCH 29.3 (28.0-33.3) pg MCHC 34.5 (31.6-35.5) g/dL RDW 14.3 (11.5-14.5) % Plt Count 244 (140-400) K/mcL MPV 9.3 L (9.4-12.4) fL Immature Gran % 0.3 (0-4) % Seg Neutrophils % 72.3 % Lymphocytes % 16.2 % Monocytes % 9.3 % Eosinophils % 1.4 % Basophils % 0.5 % Neutrophils # 6.4 (1.6-8.9) K/mcL Lymphocytes # 1.4 (0.6-4.6) K/mcL Monocytes # 0.8 (0.0-1.3) K/mcL Eosinophils # 0.1 (0.0-0.6) K/mcL Basophils # 0.0 (0.0-0.2) K/mcL Sodium 134 L (136-145) mEq/L Potassium 3.4 L (3.5-5.1) mEq/L Chloride 97 L (98-107) mEq/L Carbon Dioxide 27 (23-29) mEq/L BUN 9 (8-23) mg/dL Creatinine 0.58 L (0.60-1.20) mg/dL Est GFR ( Amer) > 60 (> 60) Est GFR (Non-Af Amer) > 60 (> 60) BUN/Creatinine Ratio 16 (6-26) Glucose 132 H (70-105) mg/dL Calculated Osmolality 279 L (280-300) Calcium 9.4 (8.6-10.3) mg/dL Total Bilirubin 0.9 (0.3-1.0) mg/dL AST 24 (13-39) Units/L ALT 19 (7-52) Units/L Alkaline Phosphatase 78 (34-104) Units/L Troponin I 0.04 H* (< 0.04) ng/mL Serum Total Protein 7.1 (6.4-8.9) g/dL Albumin 4.1 (3.5-5.7) g/dL Globulin 3.0 (2.4-3.5) g/dL Albumin/Globulin Ratio 1.4 (1.1-2.2) Urine Color (Yellow) Urine Clarity (Clear) Urine pH (5.0-8.0) pH Units Ur Specific [place] (1.010-1.025) Urine Protein (Neg-Trace) mg/dL Urine Glucose (UA) (Normal) mg/dL Urine Ketones (Negative) mg/dL Urine Blood (Negative) Urine Nitrite (Negative) Urine Bilirubin (Negative) Urine Urobilinogen (Normal) mg/dL Ur Leukocyte Esterase (Negative) Urine Microscopic RBC (0-3) per hpf Urine Microscopic WBC (0-3) per hpf Ur Squamous Epith Cells (None-Few) per lpf Urine Bacteria (None-Few) per hpf Hyaline Casts (None-Few) per lpf Ur Culture Indicated? (NO) 01/22/18 Range/Units 06:55 WBC (4.3-11.1) K/mcL RBC (3.82-4.97) M/mcL Hgb (11.5-15.4) g/dL Hct (35.3-44.9) % MCV (83.0-100.0) fL MCH (28.0-33.3) pg MCHC (31.6-35.5) g/dL RDW (11.5-14.5) % Plt Count (140-400) K/mcL MPV (9.4-12.4) fL Immature Gran % (0-4) % Seg Neutrophils % % Lymphocytes % % Monocytes % % Eosinophils % % Basophils % % Neutrophils # (1.6-8.9) K/mcL Lymphocytes # (0.6-4.6) K/mcL Monocytes # (0.0-1.3) K/mcL Eosinophils # (0.0-0.6) K/mcL Basophils # (0.0-0.2) K/mcL Sodium (136-145) mEq/L Potassium (3.5-5.1) mEq/L Chloride (98-107) mEq/L Carbon Dioxide (23-29) mEq/L BUN (8-23) mg/dL Creatinine (0.60-1.20) mg/dL Est GFR ( Amer) (> 60) Est GFR (Non-Af Amer) (> 60) BUN/Creatinine Ratio (6-26) Glucose (70-105) mg/dL Calculated Osmolality (280-300) Calcium (8.6-10.3) mg/dL Total Bilirubin (0.3-1.0) mg/dL AST (13-39) Units/L ALT (7-52) Units/L Alkaline Phosphatase (34-104) Units/L Troponin I (< 0.04) ng/mL Serum Total Protein (6.4-8.9) g/dL Albumin (3.5-5.7) g/dL Globulin (2.4-3.5) g/dL Albumin/Globulin Ratio (1.1-2.2) Urine Color Yellow (Yellow) Urine Clarity Cloudy A (Clear) Urine pH 7.5 (5.0-8.0) pH Units Ur Specific [place] 1.012 (1.010-1.025) Urine Protein Negative (Neg-Trace) mg/dL Urine Glucose (UA) Normal (Normal) mg/dL Urine Ketones Negative (Negative) mg/dL Urine Blood Negative (Negative) Urine Nitrite Positive A (Negative) Urine Bilirubin Negative (Negative) Urine Urobilinogen Normal (Normal) mg/dL Ur Leukocyte Esterase Moderate H (Negative) Urine Microscopic RBC 0-3 (0-3) per hpf Urine Microscopic WBC 50-100 H (0-3) per hpf Ur Squamous Epith Cells None Seen (None-Few) per lpf Urine Bacteria Many H (None-Few) per hpf Hyaline Casts None Seen (None-Few) per lpf Ur Culture Indicated? YES A (NO) Attestation Statement - Attestation Attestation: I examined this patient and my medical decision-making was reviewed with the DIRECTOR OF STUDENT AFFAIRS/PA/Advanced Practice Nurse/Resident Physician. I agree with the documented findings, disposition and treatment plan as described except to the extent set forth below. I did assume care of the patient. We are waiting radiology results. The patient will be admitted. She does have significant low back pain. She did fall 9 days ago. I did speak with her daughter who is in the room. The patient does know the month and the year and the name of the [place] [id number]
[2018-01-22] MEDS ORDERED: Aspirin 325 MG TABLET PO ONE (08:33)
[2018-01-22] MEDS ORDERED: Naloxone 0.4 MG/ML INJ IVP PRN (13:33)
--- NOTE | 2018-01-22 13:43 | Internal Med History&Physical ---
<Nyla Murdock Bianka - Last Filed: 01/22/18 14:18> Date of Encounter: 01/22/18 Time of Encounter: 13:40 Internal Medicine - H&P: HPI Chief complaint: Frequents falls, weakness and UTI Admitted From: Home Plans for Post Hospital Care: Transfer [facility] (Family is hoping to place the patient in LTC facility) History of present illness: Ms. Rhodes is a 87 year old female with history of frequent falls, compression fracture thoracic spine, hypertension, hyperlipidemia, and degenerative joint disease. Patient recently discharged for fall and thoracic compression fractures. Family returned with patient today, due to another fall, and are in hopes of getting the patient into a LTC facility, upon discharge. In the ED the Ct of head showed no acute hemorrhage, a mild 11 mm calcified nodule in the left hemisphere which is likely a hemangioma and cerebral atrophy. The cxr showed, mild pulmonary edema and focal infiltrates. Ct of the spine showed endplate fx of T12, T5, and L2. The patient is drowsy and falls asleep during the assessment. The patient has left hip bruising noted from the fall. Will order PT/OT consults. Family at the bedside and providing information. Bp uncontrolled at 161/78. The patient had some generalized tenderness and guarding to the abdomen with light palpation. She stated "yes" to questions related to having problems with urination. Ua is + for nitrites, 50-100 wbcs, and +bacteria. She was started on rocephin in the ED, will continue. Social service in the room speaking with the patient's family. Past Med Surg Social Fam HX - Past Medical History Medical history: arthritis, cancer, hypertension Additional medical history: brain aneurysm, pelvic fracture Psychiatric history: no psych history - Past Surgical History Surgical History: , hip replacement, hysterectomy Additional surgical history: revision of THR - Social History Smoking Status: Former smoker Smokeless Tobacco Status: No Alcohol use: none Drug use: none - Family History Sister Hx Family Cancer: Yes (Pancreatic CA) Brother Hx Family Cancer: Yes (Lung CA) Internal Medicine - H&P: Meds LORazepam [Ativan] 1 mg PO HS 09/29/16 [History] Pravastatin Sodium [Pravachol] 40 mg PO DAILY 09/29/16 [History] Metoprolol [Lopressor] 25 mg PO BID 30 Days #60 tablet 01/21/18 [Rx] 3 Allergy/AdvReac Type Severity Reaction Status Date / Time Sulfa (Sulfonamide Allergy Hives Verified 01/18/18 10:31 Antibiotics) All Systems PM: A 10-system review of systems was performed and is negative for pertinent findings except as documented above in the HPI. - Constitutional Constitutional: weakness, no chills, no fever(s), no night sweats - EENT Eyes: no change in vision, no discharge, no pain, no photophobia Ears: no ear discharge, no ear pain, no tinnitus Nose, mouth and throat: no dysphagia, no nasal discharge, no neck pain, no sore throat - Cardiovascular Cardiovascular ROS IM: no chest pain, no diaphoresis, no dyspnea, no lightheadedness, no palpitations, no syncope - Respiratory Respiratory: no cough, no dyspnea, no wheezing, no excessive phlegm production - Gastrointestinal Gastrointestinal: no abdominal pain, no diarrhea, no hematemesis, no hematochezia, no melena, no nausea, no vomiting - Genitourinary Genitourinary: urinary incontinence, no change in urinary stream, no dysuria, no flank pain, no hematuria - Musculoskeletal Musculoskeletal ROS IM: no numbness, no tingling - Integumentary Integumentary IM: no rash, no unusual bruising - Neurological Neurological ROS: no confusion, no convulsions, no focal weakness, no numbness, no tingling, no tremor(s) - Hematologic/Lymphatic Hematologic/Lymphatic: no easy bruising - Constitutional Vitals: Temp Pulse Resp BP Pulse Ox 98.2 F 96 16 161/78 93 01/22/18 09:50 01/22/18 09:50 01/22/18 09:50 01/22/18 09:50 01/22/18 09:50 General appearance: Present: A&O X 1 - Head Head exam: Present: atraumatic, normocephalic - Eye Eye exam: Present: PERRL, conjuntiva pink, sclera anicteric Pupils: Present: PERRL - Neck Neck exam general surgery: Present: supple, trachea midline. Absent: lymphadenopathy - Respiratory Respiratory exam: Present: CTAB. Absent: accessory muscle use, rales, rhonchi, wheezes - Cardiovascular Cardiovascular exam: Present: RRR, +S1, +S2. Absent: diastolic murmur, gallop, rubs, systolic murmur - GI/Abdominal GI/Abdominal exam: Present: guarding, normal bowel sounds, soft, tenderness ( Gemeralized), no peritoneal signs. Absent: distended - Extremities Exam Extremities exam: Present: warm, radial pulses palpable and symmetrical. Absent : calf tenderness, cyanotic, pedal edema - Neurological Exam Neurological exam: Present: CN II-XII intact (Unable to assess), oriented X3 ( unable go assess, answers to name only). Absent: pronater drift, facial droop, speech deficit - Skin Skin exam: Present: dry, erythema (Erythema and bruising to left hip), intact Internal Med - H&P Results - Labs CBC & Chem 7: 01/22/18 05:59 01/22/18 05:59 - Assessment and plan (1) UTI (urinary tract infection) Current Visit: Yes Status: Acute Assessment and plan: Will continue rocephin daily Continuous IVF's Qualifiers: Urinary tract infection type: acute cystitis Hematuria presence: without hematuria Qualified Code(s): N30.00 - Acute cystitis without hematuria (2) Recurrent falls Current Visit: Yes Status: Acute Assessment and plan: PT/OT consult Social service consult for possible LTC placement Up with assist only Monitor cbc and bmp daily (3) Compression fracture Current Visit: Yes Status: Acute Assessment and plan: CT showed endplate fx at T12, T5, and L 2 Patient to follow up outpatient (4) HTN (hypertension) Current Visit: Yes Status: Chronic Assessment and plan: Bp is uncontolled Continue home bp medications Heart healthy diet Qualifiers: Hypertension type: essential hypertension Qualified Code(s): I10 - Essential (primary) hypertension - Time Spent With Patient Total time spent is greater than 50% in coordination of care (as documented) at patient's floor/unit and/or counseling patient: 25 - 35 minutes <Antonio Mina P - Last Filed: 01/22/18 20:36> Date of Encounter: 01/22/18 Internal Medicine - H&P: HPI History of present illness: Ms. Rhodes is a 87 year old female All Systems PM: A 10-system review of systems was performed and is negative for pertinent findings except as documented above in the HPI. - Constitutional Vitals: Temp Pulse Resp BP Pulse Ox 98.7 F 90 16 150/85 95 01/22/18 19:18 01/22/18 19:18 01/22/18 19:18 01/22/18 19:18 01/22/18 19:18 Internal Med - H&P Results - Labs CBC & Chem 7: 01/22/18 05:59 01/22/18 05:59 - Attending Attestation I have seen and evaluated patient. I have performed my own physical examination. 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 I agree with her assessment and plan as documented in her H&P. Briefly, patient presented to ED by family because they cannot care for her at home. Patient recently had fall and hospitalized over last week and discharged on 01/20/18. She was diagnosed with thoracic compression fractures. Ortho was consulted last hospitalization and recommended no surgical intervention. Today's spinal imaging is unchanged. She was admitted for UTI. We will continue rocephin. SW has already been contacted and is working on long-term placement. - Time Spent With Patient Total time spent is greater than 50% in coordination of care (as documented) at patient's floor/unit and/or counseling patient:
[2018-01-22] MEDS: 0.9 % Sodium Chloride 1,000 ML IVC SCH (15:34)
[2018-01-23] MEDS: *HR* OxyCODONE Immed Rel 5 MG TABLET PO PRN ×4 (01:14→22:00)
[2018-01-23 05:06] LABS: Basophils # 0.1 K/mcL (0.0-0.2); Basophils % 0.6 %; Eosinophils # 0.1 K/mcL (0.0-0.6); Eosinophils % 1.5 %; Hematocrit 41.6 % (35.3-44.9); Hemoglobin 14.2 g/dL (11.5-15.4); Immature Granulocytes % 0.4 % (0-4); Lymphocytes # 1.6 K/mcL (0.6-4.6); Lymphocytes % 16.7 %; Mean Corpuscular HGB Conc 34.1 g/dL (31.6-35.5); Mean Corpuscular Hemoglobin 29.3 pg (28.0-33.3); Mean Platelet Volume 9.2 fL (9.4-12.4); Monocytes # 1.2 K/mcL (0.0-1.3); Monocytes % 12.2 %; Neutrophils # 6.5 K/mcL (1.6-8.9); Platelet Count 240 K/mcL (140-400); Red Blood Count 4.84 M/mcL (3.82-4.97); Red Cell Distribution Width 14.5 % (11.5-14.5); Segmented Neutrophils % 68.6 %
[2018-01-23 05:25] LABS: BUN/Creatinine Ratio 15 (6-26); Blood Urea Nitrogen 7 mg/dL (8-23); Calcium 8.9 mg/dL (8.6-10.3); Carbon Dioxide 21 mEq/L (23-29); Chloride 102 mEq/L (98-107); Glucose 122 mg/dL (70-105); Osmolality,Calculated 279 (280-300); Potassium 3.4 mEq/L (3.5-5.1); Sodium 135 mEq/L (136-145); eGFR For African Americans > 60 (> 60); eGFR For Non-African Americans > 60 (> 60)
[2018-01-23 05:26] LABS: Troponin I 0.03 ng/mL (< 0.04)
[2018-01-23] MEDS: cefTRIAXone 1,000 MG in Water for inj. (sterile) 20 ML 10 ML IVP SCH (06:16)
[2018-01-23] MEDS: *HR* Heparin 5,000 UNIT/ML VIAL SQ SCH (08:28)
--- NOTE | 2018-01-23 10:45 | Electrocardiograph Report ---
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
[2018-01-23] MEDS: 0.9 % Sodium Chloride 1,000 ML IVC SCH (11:35)
--- NOTE | 2018-01-23 14:37 | Internal Med Progress Note ---
Date of Encounter: 01/23/18 Time of Encounter: 11:50 - Assessment and plan (1) UTI (urinary tract infection) Current Visit: Yes Status: Acute Assessment and plan: Urine culture growing gram-negative rods. On IV ceftriaxone. We will await culture results. Continue ceftriaxone. Qualifiers: Urinary tract infection type: acute cystitis Hematuria presence: without hematuria Qualified Code(s): N30.00 - Acute cystitis without hematuria (2) Recurrent falls Current Visit: Yes Status: Acute Assessment and plan: Physical therapy has been consulted. We will await assessment and recommendations. Continue IV fluids for now. (3) Compression fracture Current Visit: Yes Status: Chronic Assessment and plan: Compression fractures in T12, T5 and L2 levels. Follow-up outpatient with spine surgery. PTOT. (4) HTN (hypertension) Current Visit: Yes Status: Chronic Assessment and plan: Blood pressure was elevated this morning but has now improved. Continue Lopressor Qualifiers: Hypertension type: essential hypertension Qualified Code(s): I10 - Essential (primary) hypertension - Time Spent With Patient Total time spent is greater than 50% in coordination of care (as documented) at patient's floor/unit and/or counseling patient: - Subjective Interval history: Patient is doing well at this time. Denies any dizziness or lightheadedness. No dysuria. No chest pain or abdominal pain. - Constitutional Vitals: Temp Pulse Resp BP Pulse Ox 98.2 F 75 16 146/74 95 01/23/18 11:42 01/23/18 11:42 01/23/18 11:42 01/23/18 11:42 01/23/18 11:42 General appearance: Present: cooperative, A&O X 1, answers questions appropriately - Neck Neck exam general surgery: Present: supple, trachea midline. Absent: lymphadenopathy - Respiratory Respiratory exam: Present: CTAB. Absent: accessory muscle use, rales, rhonchi, wheezes - Cardiovascular Cardiovascular exam: Present: RRR, +S1, +S2. Absent: diastolic murmur, gallop, rubs, systolic murmur - GI/Abdominal GI/Abdominal exam: Present: normal bowel sounds, soft, no peritoneal signs. Absent: distended, tenderness - Extremities Exam Extremities exam: Present: warm, radial pulses palpable and symmetrical. Absent : calf tenderness, cyanotic, pedal edema - Neurological Exam Neurological exam: Present: alert, no focal deficits. Absent: facial droop, speech deficit - Skin Skin exam: Present: dry, intact Internal Medicine: Result - Labs CBC & Chem 7: 01/23/18 03:48 01/23/18 03:48 Labs: Short CBC 01/23/18 Range/Units 03:48 WBC 9.4 (4.3-11.1) K/mcL Hgb 14.2 (11.5-15.4) g/dL Hct 41.6 (35.3-44.9) % Plt Count 240 (140-400) K/mcL Neutrophils # 6.5 (1.6-8.9) K/mcL BMP 01/23/18 03:48 Sodium 135 L Potassium 3.4 L Chloride 102 Carbon Dioxide 21 L BUN 7 L Creatinine 0.47 L Glucose 122 H Calcium 8.9 Cardiac Enzymes 01/23/18 Range/Units 03:48 Troponin I 0.03 (< 0.04) ng/mL Consult Discharge Plan - Plan Referrals: Andrey Trujillo Jr, MD [Primary Care Provider] -
[2018-01-23] MEDS ORDERED: *HR* LORazepam 2 MG/ML VIAL IVP ONE (21:04)
[2018-01-23] MEDS: Ondansetron 4 MG/2 ML VIAL IVP PRN (21:43)
[2018-01-24 02:21] LABS: Basophils # 0.1 K/mcL (0.0-0.2); Basophils % 0.6 %; Eosinophils # 0.2 K/mcL (0.0-0.6); Eosinophils % 2.5 %; Hemoglobin 13.5 g/dL (11.5-15.4); Immature Granulocytes % 0.5 % (0-4); Lymphocytes # 1.6 K/mcL (0.6-4.6); Lymphocytes % 18.3 %; Mean Corpuscular HGB Conc 33.8 g/dL (31.6-35.5); Mean Corpuscular Hemoglobin 29.1 pg (28.0-33.3); Mean Corpuscular Volume 86.2 fL (83.0-100.0); Mean Platelet Volume 9.3 fL (9.4-12.4); Monocytes # 1.2 K/mcL (0.0-1.3); Monocytes % 14.3 %; Neutrophils # 5.5 K/mcL (1.6-8.9); Platelet Count 258 K/mcL (140-400); Red Blood Count 4.64 M/mcL (3.82-4.97); Red Cell Distribution Width 14.7 % (11.5-14.5); Segmented Neutrophils % 63.8 %
[2018-01-24 02:35] LABS: BUN/Creatinine Ratio 19 (6-26); Blood Urea Nitrogen 11 mg/dL (8-23); Calcium 9.1 mg/dL (8.6-10.3); Carbon Dioxide 27 mEq/L (23-29); Chloride 101 mEq/L (98-107); Glucose 199 mg/dL (70-105); Osmolality,Calculated 283 (280-300); Potassium 3.3 mEq/L (3.5-5.1); Sodium 134 mEq/L (136-145); eGFR For African Americans > 60 (> 60); eGFR For Non-African Americans > 60 (> 60)
[2018-01-24] MEDS: cefTRIAXone 1,000 MG in Water for inj. (sterile) 20 ML 10 ML IVP SCH (06:19)
[2018-01-24] MEDS: *HR* OxyCODONE Immed Rel 5 MG TABLET PO PRN ×3 (08:16→20:35)
[2018-01-24] MEDS: *HR* Heparin 5,000 UNIT/ML VIAL SQ SCH (08:16)
[2018-01-24] MEDS ORDERED: *HR* LORazepam 0.5 MG TABLET PO PRN (14:25)
--- NOTE | 2018-01-24 14:37 | Internal Med Progress Note ---
Date of Encounter: 01/24/18 Time of Encounter: 08:40 - Assessment and plan (1) UTI (urinary tract infection) Current Visit: Yes Status: Acute Assessment and plan: Urine culture positive for Escherichia coli. Will change to oral antibiotics. Qualifiers: Urinary tract infection type: acute cystitis Hematuria presence: without hematuria Qualified Code(s): N30.00 - Acute cystitis without hematuria (2) Recurrent falls Current Visit: Yes Status: Acute Assessment and plan: Patient evaluated by physical therapy and recommended placement to skilled rehabilitation. 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 (3) Compression fracture Current Visit: Yes Status: Chronic Assessment and plan: chronic. Follow up with spine surgery as needed (4) HTN (hypertension) Current Visit: Yes Status: Chronic Assessment and plan: Blood pressure is slightly elevated. But her to reach and given the recent recurrent falls, will allow for systolic blood pressure up to 150. Continue metoprolol. Qualifiers: Hypertension type: essential hypertension Qualified Code(s): I10 - Essential (primary) hypertension - Time Spent With Patient Total time spent is greater than 50% in coordination of care (as documented) at patient's floor/unit and/or counseling patient: - Subjective Interval history: Patient is sitting up in chair. Feels good. Denies any new complaints at this time. No nausea or vomiting. No fever or chills reported overnight. No dysuria. - Constitutional Vitals: Temp Pulse Resp BP Pulse Ox 98.1 F 78 16 148/77 93 01/24/18 09:46 01/24/18 09:46 01/24/18 09:46 01/24/18 09:46 01/24/18 09:46 General appearance: Present: cooperative, A&O X 1, answers questions appropriately - Neck Neck exam general surgery: Present: supple, trachea midline. Absent: lymphadenopathy - Cardiovascular Cardiovascular exam: Present: RRR, +S1, +S2, systolic murmur. Absent: diastolic murmur, gallop, rubs - GI/Abdominal GI/Abdominal exam: Present: normal bowel sounds, soft, no peritoneal signs. Absent: distended, tenderness - Extremities Exam Extremities exam: Present: warm, radial pulses palpable and symmetrical. Absent : calf tenderness, cyanotic, pedal edema Internal Medicine: Result - Labs CBC & Chem 7: 01/24/18 01:24 01/24/18 01:24 Labs: Short CBC 01/24/18 Range/Units 01:24 WBC 8.5 (4.3-11.1) K/mcL Hgb 13.5 (11.5-15.4) g/dL Hct 40.0 (35.3-44.9) % Plt Count 258 (140-400) K/mcL Neutrophils # 5.5 (1.6-8.9) K/mcL BMP 01/24/18 01:24 Sodium 134 L Potassium 3.3 L Chloride 101 Carbon Dioxide 27 BUN 11 Creatinine 0.59 L Glucose 199 H Calcium 9.1 Consult Discharge Plan - Plan Referrals: Andrey Trujillo Jr, MD [Primary Care Provider] -
[2018-01-24] MEDS: Cefdinir 300 MG CAPSULE PO SCH (20:35)
[2018-01-24] MEDS: Ondansetron 4 MG/2 ML VIAL IVP PRN (21:21)
[2018-01-25] MEDS: *HR* OxyCODONE Immed Rel 5 MG TABLET PO PRN (06:14)
[2018-01-25] MEDS: *HR* Heparin 5,000 UNIT/ML VIAL SQ SCH (09:14)
[2018-01-25] MEDS: Cefdinir 300 MG CAPSULE PO SCH (09:14)
--- NOTE | 2018-01-25 13:44 | Discharge Summary ---
- NOTES TO OUTPATIENT PROVIDER Notes to Outpatient Provider: Patient hospitalized here with acute urinary tract infection and recurrent falls. She was treated with IV antibiotics. Urine cultures positive for Escherichia coli and patient has been transitioned to oral antibiotics. She was evaluated by physical therapy and recommended placement to skilled rehabilitation. She will be discharged to skilled rehabilitation for now she has approval for it. She also has chronic compression fracture in her T and L-spine and she can follow up with spine surgery as needed outpatient. Date of Encounter: 01/25/18 Time of Encounter: 08:15 - Discharge Diagnosis (1) UTI (urinary tract infection) Priority: Primary Status: Acute Qualifiers: Urinary tract infection type: acute cystitis Hematuria presence: without hematuria Qualified Code(s): N30.00 - Acute cystitis without hematuria (2) Recurrent falls Priority: Secondary Status: Acute (3) Compression fracture Priority: Secondary Status: Chronic (4) HTN (hypertension) Priority: Secondary Status: Chronic Qualifiers: Hypertension type: essential hypertension Qualified Code(s): I10 - Essential (primary) hypertension Hospital course: Ms. Rhodes is a 87 year old female patient with history of hypertension, arthritis, compression fracture, hypertension, hyperlipidemia was hospitalized here with acute urinary tract infection and recurrent falls. She was treated with IV antibiotics. Urine cultures is positive for Escherichia coli and patient has been transitioned to oral antibiotics. She was evaluated by physical therapy and recommended placement to skilled rehabilitation. She will be discharged to skilled rehabilitation for now she has approval for it. She also has chronic compression fracture in her T and L-spine and she can follow up with spine surgery as needed outpatient. Discharge discussed with: patient, nurse - Time Spent with Patient Total time spent providing and/or coordinating discharge services: Greater than 30 minutes (33 min) - Discharge Medications Prescriptions: Cefdinir [Omnicef] 300 mg PO BID #10 capsule LORazepam [Ativan] 1 mg PO HS 5 Days #10 tablet Home Medications: Pravastatin Sodium [Pravachol] 40 mg PO DAILY 09/29/16 [History] Metoprolol [Lopressor] 25 mg PO BID 30 Days #60 tablet 01/21/18 [Rx] Acetaminophen [Tylenol] 500 mg PO Q6HR PRN tablet 01/25/18 [Rx] Cefdinir [Omnicef] 300 mg PO BID #10 capsule 01/25/18 [Rx] LORazepam [Ativan] 1 mg PO HS 5 Days #10 tablet 01/25/18 [Rx] Allergies/Adverse Reactions: 3 Allergy/AdvReac Type Severity Reaction Status Date / Time Sulfa (Sulfonamide Allergy Hives Verified 01/18/18 10:31 Antibiotics) Date of admission: 01/22/18 08:53 Primary care physician: Andrey Trujillo Jr, MD Consults: 01/22/18 10:15 Consult to Clinical Transplant Coordinator [CONS] Routine Reason for SW Consult: Nursing consult - d/c planning/possible placement 01/22/18 13:36 Consult to Occupational Therapy [CONS] Routine Comment: Evaluate, develop and implement POC Reason for Consult: Frequent falls and weakness Does patient have active BEDREST order?: No Is patient medically & hemodynamically stable?: Yes Patient assessed for mobility or mobilized this visit?: No 01/22/18 13:37 Consult to Physical Therapy [CONS] Routine Comment: Evaluate, develop and implement POC Reason for Consult: Frequent falls and weakness Does patient have active BEDREST order?: No Is patient medically & hemodynamically stable?: Yes Patient assessed for mobility or mobilized this visit?: No Discharging clinician: Vanda Swann Anticipated date of discharge: 01/25/18 - Constitutional Vitals: Temp Pulse Resp BP Pulse Ox 97.9 F 87 16 140/75 96 01/25/18 10:43 01/25/18 10:43 01/25/18 10:43 01/25/18 10:43 01/25/18 10:43 General appearance: Present: cooperative, A&O X 1, answers questions appropriately - Respiratory Respiratory exam: Present: CTAB. Absent: accessory muscle use, rales, rhonchi, wheezes - Cardiovascular Cardiovascular exam: Present: RRR, +S1, +S2. Absent: diastolic murmur, gallop, rubs, systolic murmur - Extremities Exam Extremities exam: Present: warm, radial pulses palpable and symmetrical. Absent : calf tenderness, cyanotic, pedal edema - Patient Status Disposition: Transfer SNF Condition: Undetermined Functional capacity at discharge: uses cane/walker Overall status at discharge: patient is progressing back to baseline - Discharge Instructions Follow Up With: Andrey Trujillo Jr, MD [Primary Care Provider] - (in 1-2 weeks) - Diet and Activity Activity: as per physical therapy, increase activity as tolerated Diet: advance to your usual diet, low fat, low cholesterol, low salt diet
--- NOTE | 2018-01-25 13:50 | Physician Discharge Referral ---
ExtendedCare Referral Info Provider in Charge after Transfer: PCP Institutional Level of Care: Skilled - Diagnosis (1) UTI (urinary tract infection) Priority: Primary Status: Acute (2) Recurrent falls Priority: Secondary Status: Acute (3) Compression fracture Priority: Secondary Status: Chronic (4) HTN (hypertension) Priority: Secondary Status: Chronic Prognosis: Fair Aware of Diagnosis: Patient, Family Aware of Prognosis: Patient, Family - Transfer Medications Prescriptions: Cefdinir [Omnicef] 300 mg PO BID #10 capsule LORazepam [Ativan] 1 mg PO HS 5 Days #10 tablet Home Medications: Pravastatin Sodium [Pravachol] 40 mg PO DAILY 09/29/16 [History] Metoprolol [Lopressor] 25 mg PO BID 30 Days #60 tablet 01/21/18 [Rx] Acetaminophen [Tylenol] 500 mg PO Q6HR PRN tablet 01/25/18 [Rx] Cefdinir [Omnicef] 300 mg PO BID #10 capsule 01/25/18 [Rx] LORazepam [Ativan] 1 mg PO HS 5 Days #10 tablet 01/25/18 [Rx] Allergies/Adverse Reactions: 3 Allergy/AdvReac Type Severity Reaction Status Date / Time Sulfa (Sulfonamide Allergy Hives Verified 01/18/18 10:31 Antibiotics) - Respiratory Orders Smoking Cessation: Smoking cessation has been advised. For more information, call the [employer] Tobacco Quit Line at 9-016-QPSHNOW. - Advance Directives Code Status: Full Code - Mobility Orders Ambulate (per PT) - Rehabiliation Orders Rehab Potential: Fair Rehab Orders: Evaluation for Physical Therapy, Evaluation for Occupational Therapy - Diet Orders Cardiac CERTIFICATION: I certify that the transfer of the above named patient to an Extended Care Facility is necessary for the continuing treatment of the diagnosis listed. The above information is true and accurate reflection of patient's current condition. Confidential - Redisclosure prohibited without a patient's written consent.
[2018-01-25 15:17] VITALS: BP 148/84
== END 2018-01-25 16:33 ==
LOC: 3NENU 05:43 → EMEROO 05:43 → SUATTDRO 08:53 → 3NENU 09:33
PROVIDERS: ADMIT Family Medicine; ATTEND Internal Medicine